=== PATIENT | female | born 1935 | race Caucasian/White ===

== ENCOUNTER 2017-07-16 15:08 | Inpatient (IN) | payer MEDICARE, OTHER ==
--- NOTE | 2017-07-16 15:25 | ED Physician Chart ---
ED Chief Complaint/HPI - Patient Information Date Seen:: 07/16/17 Time Seen:: 15:10 Chief Complaint:: hypoxia History of Present Illness:: Patient was 30 minutes into dialysis and her pulse ox dropped 89%. She followed the paramedics simple commands of squeeze my hand. Family MD/PCP:: Paramedics Review:: Nurse's Note Reviewed, Transfer documents Reviewed, Patient unable to respond ED Review of Systems - Review of Systems General/Constitutional: No fever, No chills Skin: No skin lesions Head: No headache Eyes: No loss of vision ENT: No earache Neck: No neck pain Cardio Vascular: No chest pain Pulmonary: Other (hypoxia) GI: No nausea, No vomiting, No diarrhea G/U: No dysuria Musculoskeletal: No bone or joint pain Endocrine: No polyuria Psychiatric: Prior psych history Hematopoietic: No bruising Allergic/Immuno: No urticaria Neurological: No syncope ED Past Medical History - Past Medical History Past Medical History: HTN, CHF, CVA/TIA, Dyslipidemia, PUD/GERD, Thyroid disorder, Other (respiratory failure; status post bacteremia; failure on dialysis; anxiety; depression ; hypothyroidism) Family History: Other (unavailable) Social History: Care Facility Surgical History: PEG/GTube, other (trach; dialysis shunt) Psychiatricy History: Depression Medication: Reviewed Family Medical History - Family Member Mother History Unknown: Yes Ethnicity: Non- Living Status: ED Physical Exam - Physical Examination General/Constitutional: No distress Other Gen/Cons comments:: Chronically ill-appearing Head: Atraumatic Eyes: Lids, conjuctiva normal, PERRL Skin: Nl inspection, No rash, No skin lesions, No ecchymosis ENMT: External ears, nose nl, TM canals nl Neck: No bruit Respiratory: Nl effort/Exclusion, Clear to Auscultation Cardio Vascular: RRR GI: No tenderness/rebounding/guarding, No hernia Extremities: No tenderness or effusion Other Neuro/Psych comments:: Left-sided paralysis Misc: Normal back ED Labs/Radiology/EKG Results - Lab Results Results: Laboratory Results - last 24 hr 07/16/17 07/16/17 07/16/17 15:54 15:54 15:54 WBC 20.3 H* RBC 2.71 L Hgb 8.1 L Hct 24.8 L MCV 91.5 MCH 29.8 MCHC Differential 32.6 RDW 17.5 Plt Count 237 MPV 7.5 Band Neutrophils % 7 Neutrophils (Manual) 86 H Lymphocytes 2 L Monocytes 5 Eosinophils 0 Basophils 0 Hypochromia 1+ Platelet Estimate ADEQUATE Platelet Morphology NORMAL RBC Morph Micro Appear ABNORMAL Sodium 132 L Potassium 3.2 L Chloride 97 L Carbon Dioxide 26.2 Anion Gap 12.0 BUN 70 H Creatinine 2.7 H Est GFR ( Amer) TNP Est GFR (Non-Af Amer) TNP BUN/Creatinine Ratio 25.9 Glucose 146 H Whole Bld Lactic Acid 0.90 Calcium 8.8 Laboratory Results - last 24 hr 07/16/17 07/16/17 07/16/17 15:54 15:54 15:54 WBC 20.3 H* RBC 2.71 L Hgb 8.1 L Hct 24.8 L MCV 91.5 MCH 29.8 MCHC Differential 32.6 RDW 17.5 Plt Count 237 MPV 7.5 Band Neutrophils % 7 Neutrophils (Manual) 86 H Lymphocytes 2 L Monocytes 5 Eosinophils 0 Basophils 0 Hypochromia 1+ Platelet Estimate ADEQUATE Platelet Morphology NORMAL RBC Morph Micro Appear ABNORMAL Sodium 132 L Potassium 3.2 L Chloride 97 L Carbon Dioxide 26.2 Anion Gap 12.0 BUN 70 H Creatinine 2.7 H Est GFR ( Amer) TNP Est GFR (Non-Af Amer) TNP BUN/Creatinine Ratio 25.9 Glucose 146 H Whole Bld Lactic Acid 0.90 Calcium 8.8 - Radiology Results Results: Chest x-ray: Possible retrocardiac infiltrate as left hemidiaphragm is not visualized - EKG Interpretations Rate & Rhythm: normal sinus rhythm with a rate of 84; T wave changes [place]: normal ED Septic Shock - . Is Septic Shock (SBP<90, OR Lactate>4 mmol\L) present?: No ED Reassessment (Disposition) - Reassessment Reassessment Condition:: Unchanged - Diagnosis Diagnosis:: Leukocytosis; hypokalemia; anemia; aspiration pneumonia - Patient Disposition Admitted to:: ICU Spoke to:: Brian Zhong Admitting Medical Physician:: Brian Zhong Condition at Disposition:: Stable
[2017-07-16 16:14] LABS: HEMATOCRIT 24.8 % (41.0-60); HEMOGLOBIN 8.1 gm/dL (12-16); MEAN CELL VOLUME 91.5 fl (81-100); MEAN CORPUSCULAR HEMOGLOBIN 29.8 pg (27.0-31.0); MEAN CORPUSCULAR HGB CONC 32.6 pg (28.0-36.0); MEAN PLATELET VOLUME 7.5 fl; NEUTROPHILE ABSOLUTE 18.3 Th/cmm (1.8-8.0); PLATELET COUNT 237 Th/cmm (150-400); RED BLOOD COUNT 2.71 Mil/cmm (3.80-5.20); RED CELL DISTRIBUTION WIDTH 17.5 % (11.5-20.0)
[2017-07-16 16:20] LABS: BUN - UREA NITROGEN 70 mg/dL (7-25); BUN/CREATININE RATIO 25.9; CALCIUM SERUM 8.8 mg/dL (8.6-10.3); CARBON DIOXIDE 26.2 mEq/L (21.0-31.0); CHLORIDE 97 mEq/L (98-107); CREATININE - SERUM 2.7 mg/dL (0.6-1.2); GLUCOSE 146 mg/dL (70-105); POTASSIUM SERUM 3.2 mEq/L (3.5-5.1); SODIUM SERUM 132 mEq/L (136-145)
[2017-07-16 16:25] LABS: WHITE BLOOD COUNT 20.3 Th/cmm (4.8-10.8)
[2017-07-16] MEDS ORDERED: Piperacillin Sodium/Tazobact 3.375 gm Vial IV ONE (16:37)
[2017-07-16 16:54] LABS: BAND NEUTROPHILE 7 % (0-10); NEUTROPHILS 86 % (40-80); TOTAL CELLS COUNTED 100
[2017-07-16 16:55] LABS: BASOPHIL 0 % (0-3); EOSINOPHIL 0 % (0-5); HYPOCHROMIA 1+; PLATELET ESTIMATE ADEQUATE (NORMAL); PLATELET MORPHOLOGY NORMAL (NORMAL)
[2017-07-16] MEDS ORDERED: Albuterol Nebulizer 2.5mg/3mL HHN SCH (23:00)
[2017-07-16] MEDS ORDERED: Ipratropium Neb 0.5 mg/2.5 mL UD HHN SCH (23:00)
[2017-07-16] MEDS ORDERED: DARBEPOETIN ALFA IJ SCH (23:45)
[2017-07-16] MEDS ORDERED: [UNRECOGNIZED DRUG - OTHER] IJ SCH (23:45)
[2017-07-16] MEDS ORDERED: Lactulose 10 Gm/15 mL 30mL UDC GT PRN (23:46)
[2017-07-17] MEDS: Albuterol/Ipratropium Neb 3 ML AERS HHN PRN (02:50)
--- NOTE | 2017-07-17 02:54 | History & Physical ---
ADMIT DATE: 07/16/2017 CHIEF COMPLAINT: Sepsis. HISTORY OF PRESENT ILLNESS: The patient is an 82-year-old female with a long history of hypertension, end-stage renal failure, chronic respiratory failure, was in the dialysis center, became very obtunded, altered, hypotensive, and was transferred to the Emergency Room at [facility]. On arrival, was evaluated by the ER physician. Initial workup was significant for possible sepsis, admitted to the ICU, started on IV antibiotic. Resume her medication and diet. Infectious disease consultation was obtained and also receiver [employer] and [employer] or [employer]. The patient will resume her medication and diet. The patient is not coherent. PAST MEDICAL HISTORY: Significant for hypertension, encephalopathy, chronic respiratory failure, hyperlipidemia. PAST SURGICAL HISTORY: Tracheostomy, G-tube placement and AV shunt placement. ALLERGIES: ATENOLOL, CARVEDILOL, CYCLOSPORINE, METOPROLOL, AND PHYSOSTIGMINE. SOCIAL HISTORY: No smoking, alcohol or drug use. FAMILY HISTORY: Noncontributory. REVIEW OF SYSTEMS: RENAL SYSTEM: No history of chronic renal disorder. CARDIOVASCULAR SYSTEM: She has history of coronary artery disease and hypertension. ENDOCRINE SYSTEM: No diabetes or thyroid problem. GASTROINTESTINAL SYSTEM: No upper or lower gastrointestinal bleed. NEUROLOGICAL: She has history of encephalopathy. MUSCULOSKELETAL SYSTEM: No muscular dystrophy. HEMATOLOGIC SYSTEM: No bleeding tendency. RESPIRATORY SYSTEM: She has chronic respiratory failure. GENITOURINARY SYSTEM: She has had end-stage renal failure, on hemodialysis. PHYSICAL EXAMINATION: GENERAL: She is comfortable, not in distress. VITAL SIGNS: Her temperature is 98, heart rate is 74, blood pressure 121/47. HEENT: Normocephalic. Pupils are reacting to light and accommodation. Sclerae are clear. NECK: Supple. Negative for lymphadenopathy, JVD or bruit. CHEST: ____ bilateral mild diminished. No wheezing. HEART: S1, S2 normal. No murmur or gallop. ABDOMEN: Soft. Bowel sounds are positive. EXTREMITIES: No edema. NEUROLOGIC: Not coherent. LABORATORY DATA: White blood cell is 20.3, hemoglobin 8.1, hematocrit 24.8, platelet is 237. Sodium is 132, potassium 3.2, BUN 70, and creatinine 2.7. ASSESSMENT: 1. Possible sepsis. 2. Chronic respiratory failure. 3. Hypertension. 4. Coronary artery disease. 5. Chronic anemia. PLAN: The patient was admitted to the hospital under Dr. Zhong's service, started on IV antibiotic. The patient will resume her G-tube feeding, medication and Nephrology consultation, Infectious Disease consultation, and Pulmonary consultation. Order CBC and CMP for tomorrow. JOB# [id number]
[2017-07-17 04:38] LABS: HEMATOCRIT 23.8 % (41.0-60); MEAN CELL VOLUME 91.4 fl (81-100); MEAN CORPUSCULAR HEMOGLOBIN 29.5 pg (27.0-31.0); MEAN CORPUSCULAR HGB CONC 32.2 pg (28.0-36.0); MEAN PLATELET VOLUME 7.4 fl; NEUTROPHILE ABSOLUTE 16.5 Th/cmm (1.8-8.0); PLATELET COUNT 238 Th/cmm (150-400); RED CELL DISTRIBUTION WIDTH 18.4 % (11.5-20.0)
[2017-07-17 04:46] LABS: ALB/GLOB RATIO 0.7 (1.0-1.8); ALKALINE PHOSPHATASE 494 U/L (34-104); ANION GAP 13.7 (7.0-16.0); BILIRUBIN,TOTAL 0.3 mg/dL (0.3-1.0); CALCIUM SERUM 8.6 mg/dL (8.6-10.3); CHLORIDE 96 mEq/L (98-107); CREATININE - SERUM 3.3 mg/dL (0.6-1.2); GLUCOSE 146 mg/dL (70-105); POTASSIUM SERUM 3.7 mEq/L (3.5-5.1); SGOT 53 U/L (13-39); SGPT/ALT 66 U/L (7-52); SODIUM SERUM 133 mEq/L (136-145)
[2017-07-17 05:06] LABS: HEMOGLOBIN 7.7 gm/dL (12-16); WHITE BLOOD COUNT 18.1 Th/cmm (4.8-10.8)
[2017-07-17 05:07] LABS: BUN - UREA NITROGEN 83 mg/dL (7-25); BUN/CREATININE RATIO 25.2
[2017-07-17 05:09] LABS: NEUTROPHILS 93 % (40-80); PLATELET ESTIMATE ADEQUATE (NORMAL)
[2017-07-17 05:10] LABS: ANISOCYTOSIS 1+; PLATELET MORPHOLOGY NORMAL (NORMAL)
--- NOTE | 2017-07-17 07:08 | Diagnostic Imaging Report ---
Exam: Portable examination of chest. HISTORY: Hypoxia. Portable examination of the chest at 1526 hours reviewed. The study demonstrates cardiomegaly. The aorta is calcified. Tracheostomy tube and right subclavian catheter in satisfactory position. There is evidence for right-sided atelectasis versus infiltrate with superimposed small effusion. The left lung parenchyma is well aerated. Mild congestion is present. Bony thorax remarkable for degenerative osteopenia and osteoarthritic changes of shoulder joints bilaterally. IMPRESSION: 1. Mild congestion 2. Question of right basilar infiltrate small effusion, follow-up examination recommended.
[2017-07-17] MEDS: Albuterol/Ipratropium Neb 3 ML AERS HHN SCH ×3 (07:32→19:13)
[2017-07-17] MEDS: Ferrous Sulfate 300 MG/5 ML UDC GT SCH ×2 (08:50→20:16)
[2017-07-17] MEDS: Lactobacillus Rhamnosus 10 Billion CFU Capsule GT SCH (08:50)
[2017-07-17] MEDS: Pantoprazole 40 mg/Packet GT SCH ×2 (08:52→22:15)
[2017-07-17] MEDS: Nitroglycerin 0.2 mg/hr Tdm TD SCH (09:00)
[2017-07-17] MEDS ORDERED: Aspirin 81mg Chewable Tab GT SCH (09:00)
[2017-07-17] MEDS ORDERED: Meropenem 500 MG in Sodium Chloride 0.9% 100 ML IV SCH (12:00)
[2017-07-17] MEDS ORDERED: Meropenem 500 MG in Sodium Chloride 0.9% 50 ML IV ONE (12:00)
[2017-07-17] MEDS: Levofloxacin 250mg/50mL 250 MG in Premix Fluid 1 BAG IV SCH (12:13)
[2017-07-17] MEDS ORDERED: VTE Chemical Prophylaxis Screen/Admission MC PRN (14:06)
[2017-07-17] MEDS ORDERED: Heparin Sodium 1,000 Units/mL Vial IVP ONE (15:40)
[2017-07-17] MEDS: Atorvastatin Calcium 10 MG TAB GT SCH (20:16)
[2017-07-17] MEDS: Meropenem 500 MG in Sodium Chloride 0.9% 50 ML IV SCH (20:16)
--- NOTE | 2017-07-17 20:59 | Internal Medicine Prog Note ---
Internal Medicine Subjective - Subjective Service Date: 07/17/17 Patient seen and examined:: with staff (SHE IS COMFORTABLE.) Patient is:: non-verbal, non-interactive, in bed Per staff patient has:: no adverse event Internal Medicine Objective - Results Result Diagrams: 07/17/17 04:15 07/17/17 04:15 Recent Labs: Laboratory Last Values WBC 18.1 Th/cmm (4.8-10.8) H 07/17/17 04:15 RBC 2.60 Mil/cmm (3.80-5.20) L 07/17/17 04:15 Hgb 7.7 gm/dL (12-16) L* 07/17/17 04:15 Hct 23.8 % (41.0-60) L 07/17/17 04:15 MCV 91.4 fl (81-100) 07/17/17 04:15 MCH 29.5 pg (27.0-31.0) 07/17/17 04:15 MCHC Differential 32.2 pg (28.0-36.0) 07/17/17 04:15 RDW 18.4 % (11.5-20.0) 07/17/17 04:15 Plt Count 238 Th/cmm (150-400) 07/17/17 04:15 MPV 7.4 fl 07/17/17 04:15 Band Neutrophils % 7 % (0-10) 07/16/17 15:54 Neutrophils (Manual) 93 % (40-80) H 07/17/17 04:15 Lymphocytes 4 % (20-50) L 07/17/17 04:15 Monocytes 3 % (2-10) 07/17/17 04:15 Eosinophils 0 % (0-5) 07/16/17 15:54 Basophils 0 % (0-3) 07/16/17 15:54 Hypochromia 1+ 07/16/17 15:54 Platelet Estimate ADEQUATE (NORMAL) 07/17/17 04:15 Platelet Morphology NORMAL (NORMAL) 07/17/17 04:15 Anisocytosis 1+ 07/17/17 04:15 RBC Morph Micro Appear ABNORMAL (NORMAL) 07/17/17 04:15 Sodium 133 mEq/L (136-145) L 07/17/17 04:15 Potassium 3.7 mEq/L (3.5-5.1) 07/17/17 04:15 Chloride 96 mEq/L (98-107) L 07/17/17 04:15 Carbon Dioxide 27.0 mEq/L (21.0-31.0) 07/17/17 04:15 Anion Gap 13.7 (7.0-16.0) 07/17/17 04:15 BUN 83 mg/dL (7-25) H* 07/17/17 04:15 Creatinine 3.3 mg/dL (0.6-1.2) H 07/17/17 04:15 Est GFR ( Amer) TNP 07/17/17 04:15 Est GFR (Non-Af Amer) TNP 07/17/17 04:15 BUN/Creatinine Ratio 25.2 07/17/17 04:15 Glucose 146 mg/dL (70-105) H 07/17/17 04:15 Whole Bld Lactic Acid 0.90 mmol/L (0.60-1.99) 07/16/17 15:54 Calcium 8.6 mg/dL (8.6-10.3) 07/17/17 04:15 Total Bilirubin 0.3 mg/dL (0.3-1.0) 07/17/17 04:15 AST 53 U/L (13-39) H 07/17/17 04:15 ALT 66 U/L (7-52) H 07/17/17 04:15 Alkaline Phosphatase 494 U/L (34-104) H 07/17/17 04:15 Total Protein 6.2 gm/dL (6.0-8.3) 07/17/17 04:15 Albumin 2.5 gm/dL (3.7-5.3) L 07/17/17 04:15 Globulin 3.7 gm/dL 07/17/17 04:15 Albumin/Globulin Ratio 0.7 (1.0-1.8) L 07/17/17 04:15 Random Vancomycin 19.8 ug/mL (5.0-40.0) 07/17/17 08:50 Blood Type O NEGATIVE 07/17/17 09:05 Antibody Screen NEGATIVE 07/17/17 09:05 Crossmatch See Detail 07/17/17 09:05 - Physical Exam Vitals and I&O: Vital Signs Temp 97.3 F 07/17/17 15:00 Pulse 83 07/17/17 19:14 Resp 18 07/17/17 19:14 BP 158/29 07/17/17 19:00 Pulse Ox 97 07/17/17 19:14 Intake & Output 07/17/17 07/17/17 07/18/17 06:59 18:59 06:59 Intake Total 500 50 200 Output Total 2 Balance 500 50 198 Weight (lbs) 52.163 kg Intake: Intake, IV Amount 500 50 Levofloxacin 250mg/50mL 50 250 mg In Premix Fluid 1 bag @ 50 mls/hr IV Q24HR@ 0900 [facility] Rx#:[id number] Vancomycin HCl 1 gm In 250 Sodium Chloride 0.9% 250 ml @ 166.667 mls/hr IV X1 ONE Rx#:[id number] Other 200 Output: Stool 2 Active Medications: Current Medications Albuterol/Ipratropium (Duoneb Neb) 3 ml HHN Q2HR PRN PRN Reason: SOB/WHEEZING Stop: 09/14/17 23:45 Last Admin: 07/17/17 02:50 Dose: 3 ml Albuterol/Ipratropium (Duoneb Neb) 3 ml HHN [id number] [facility] Stop: 09/16/17 06:59 Amlodipine Besylate (Norvasc) 10 mg GT QPM [facility] Stop: 09/15/17 16:59 Last Admin: 07/17/17 17:00 Dose: Not Given Aspirin (Aspirin Chewable) 81 mg GT DAILY [facility] Stop: 09/15/17 08:59 Last Admin: 07/17/17 08:50 Dose: 81 mg Atorvastatin Calcium (Lipitor) 20 mg GT HS [facility] Stop: 09/15/17 20:59 Last Admin: 07/17/17 20:16 Dose: 20 mg Budesonide (Pulmicort) 0.5 mg HHN BIDRT [facility] Stop: 09/16/17 06:59 Diphenhydramine HCl (Benadryl) 25 mg GT Q4H PRN PRN Reason: Itching Stop: 09/14/17 23:45 Escitalopram Oxalate (Lexapro) 10 mg GT DAILY [facility] PRN Reason: Protocol Stop: 09/15/17 08:59 Ferrous Sulfate (Iron) 300 mg GT Q12H [facility] Stop: 09/15/17 07:29 Last Admin: 07/17/17 20:16 Dose: 300 mg Heparin Sodium (Porcine) (Heparin) 2,000 units HD UD [facility] Stop: 07/19/17 00:00 Heparin Sodium (Porcine) (Heparin) 5,000 units HD UD [facility] Stop: 07/18/17 09:01 Hydralazine HCl (Apresoline) 20 mg GT Q6H PRN PRN Reason: SBP ABOVE 150 Stop: 09/14/17 23:45 Levofloxacin 250 mg/ (Miscellaneous) 50 mls @ 50 mls/hr IV Q24HR@0900 [facility] Stop: 09/15/17 11:59 Last Infusion: 07/17/17 13:15 Dose: Infused Meropenem 500 mg/ Sodium (Chloride) 50 mls @ 100 mls/hr IV Q12HR [facility] Stop: 09/15/17 11:59 Last Admin: 07/17/17 20:16 Dose: 100 mls/hr Albumin Human (Albuminar 25%) 25 gm in 100 mls @ 50 mls/hr IV PRN PRN PRN Reason: BP Support During HD Lactobacillus Rhamnosus (Culturelle) 1 each GT DAILY [facility] Stop: 09/15/17 08:59 Last Admin: 07/17/17 08:50 Dose: 1 each Lactulose (Cephulac) 20 gm GT Q6H PRN PRN Reason: Constipation Stop: 09/14/17 23:45 Lisinopril (Zestril) 40 mg PO DAILY [facility] Stop: 09/15/17 08:59 Last Admin: 07/17/17 09:00 Dose: Not Given Lorazepam (Ativan) 1 mg IVP Q2HR PRN; Protocol PRN Reason: Agitation Stop: 09/14/17 22:59 Last Admin: 07/17/17 12:23 Dose: 1 mg Metoclopramide HCl (Reglan) 5 mg GT Q6H PRN PRN Reason: Nausea / Vomiting Stop: 09/15/17 00:29 Miscellaneous (Vancomycin Iv Per Pharmacy) 1 ea PRN PRN PRN Reason: PROTOCOL Stop: 09/14/17 21:42 Miscellaneous (Darbepoetin Jose In Polysorbat [Aranesp]) 0.1 mg IJ QWEEK 0730 [facility] Stop: 09/14/17 23:44 Miscellaneous (Vte Chemical Prophylaxis Screen/ Admission) 1 heidy PRN PRN PRN Reason: PROTOCOL Stop: 09/15/17 14:05 Miscellaneous (Clinical Monitoring) 1 ea MC DAILY PRN PRN Reason: RENAL Stop: 09/15/17 17:32 Nitroglycerin (Nitrostat) 0.4 mg SL Q5MIN PRN PRN Reason: Chest Pain Stop: 09/14/17 23:45 Nitroglycerin (Transderm-Nitro) 1 patch TD DAILY [facility] Stop: 09/15/17 08:59 Last Admin: 07/17/17 09:00 Dose: Not Given Pantoprazole Sodium (Protonix) 40 mg GT Q12HR [facility] Stop: 09/15/17 00:14 Last Admin: 07/17/17 08:52 Dose: 40 mg General: demented HEENT: NC/AT, PERRLA, EOMI, anicteric sclerae, throat clear Neck: Supple, No JVD, No thyromegaly, +2 carotid pulse wo bruit, No LAD Lungs: CTAB Cardiovascular: RRR, Normal S1, Normal S2, without murmur Abdomen: soft, non-tender, non-distended Extremities: clear Neurological: bedbound Internal Medicine Assmt/Plan - Assessment Assessment: 1.SEPSIS. 2.ANEMIA. 3.RESPIRATORY FAILURE. 4.ESRF. - Plan Plan: CONTINUE ON CURRENT MEDICATION AND DIET.CBC AND CMP IN AM. Nutritional Asmnt/Malnutr-PDOC - Dietary Evaluation Malnutrition Findings (Please click <Entered> for more info): Nutritional Asmnt/Malnutrition Start: 07/17/17 12: 34 Text: Status: Complete Freq: Document 07/17/17 12:34 ALONA (Rec: 07/17/17 13:13 ALONA [email or web address]) Nutritional Asmnt/Malnutrition Patient General Information Nutritional Screening High Risk Diagnosis asp pneumonia, animia, hypokalemia, leukocytosis Pertinent Medical Hx/Surgical Hx HTN, CHF, CVA/TIA, dyslipidemia, PUD/GERD, thyroid disorder, anxiety, depression, PEG, ESRD on dialysis Subjective Information pt seen sleeping in bed during the time of visit. TF Novasourse was not running at this time. Spoke with KG Quintero , TF was turn off d/t pt changing, was going to restart now at same rate of 50ml/hr continously. Per RN, pt is tolerated TF well, no residual noted. Current Diet Order/ Nutrition Support Novasource renal 50ml/hr continously, providing 2400kcal, 109g Pertinent Medications Iron, Culturelle, Vancomycin Pertinent Labs 07/17 Na 133L, K 3.7, Cl 96L, BUN 83H, Cr 3.3H, Glu 146H, AST 53H, ALT 66H, Alkaline Phos 494H, Alb 2.5 Nutritional Hx/Data Height 1.47 m Height (Calculated Centimeters) 147.3 Current Weight (lbs) 52.163 kg Weight (Calculated Kilograms) 52.2 Weight (Calculated Grams) 74928.1 [place] Body Weight 90 % [place] Body Weight 124 Body Mass Index (BMI) 24.0 Weight Status Approriate GI Symptoms Usual diet at home Novasource Renal 50ml/hr x 16hr daily with water flush 150ml q6hr, providing 1600kcal , 73g protein Skin Integrity/Comment: intact Estimated Nutritional Goals BEE in Kcals: Using Current wt Calories/Kcals/Kg 30-35 Kcals Calculated 3145-6350 Protein: Using Current wt Protein g/k.2-1.4 monitor renal labs Protein Calculated 63-73 Fluid: ml 6178-6990 Nutritional Problem 1. Problem Problem excessive intake from enteral nutrition Etiology r/t Novasource Renal running at 50m/hr continously Signs/Symptoms: current TF providing 2400kcal and 104g protein which meets 150% of nutritional needs Malnutrition Alert Protein-Calorie Malnutrition N/A Is there a minimum of two criteria No selected? Query Text:Check all the applicable criteria. A minimum of two criteria are recommended for diagnosis of either severe or non-severe malnutrition. Intervention/Recommendation Recommendations by RD Decrease Calorie Intake Comments 1. Notified RN Ingrid that current TF regimen provides excessive nutrition than actual needs. RN will change TF to 35ml/hr x 16hr daily. This provides 800ml total volume, 1600kcal, 73g protein, meeting 100% of nutritional needs. 2. monitor TF rate, tolerance, residual, wt daily, nutrition related labs 3. F/U as high risk in 07/19- 07/20 Expected Outcomes/Goals Expected Outcomes/Goals 1. pt to meet 100% of nutritional needs via nutrition support with tolerance 2. labs to improve, wt to remain stable
[2017-07-18] MEDS ORDERED: Albumin 25% 25gm/100mL 25 GM/100 ML BTL IV PRN
[2017-07-18] MEDS: Heparin Sodium 1,000 Units/mL Vial HD SCH ×2 (00:34→08:11)
[2017-07-18 05:07] LABS: HEMOGLOBIN 8.8 gm/dL (12-16); MEAN CELL VOLUME 88.9 fl (81-100); MEAN CORPUSCULAR HEMOGLOBIN 29.8 pg (27.0-31.0); MEAN CORPUSCULAR HGB CONC 33.6 pg (28.0-36.0); MEAN PLATELET VOLUME 6.6 fl; PLATELET COUNT 239 Th/cmm (150-400); RED BLOOD COUNT 2.94 Mil/cmm (3.80-5.20); RED CELL DISTRIBUTION WIDTH 17.8 % (11.5-20.0)
[2017-07-18 05:19] LABS: ALB/GLOB RATIO 0.7 (1.0-1.8); ALKALINE PHOSPHATASE 439 U/L (34-104); BILIRUBIN,DIRECT 0.16 mg/dL (0.0-0.2); BILIRUBIN,TOTAL 0.4 mg/dL (0.3-1.0); BUN - UREA NITROGEN 53 mg/dL (7-25); BUN/CREATININE RATIO 22.1; CALCIUM SERUM 8.3 mg/dL (8.6-10.3); CHLORIDE 95 mEq/L (98-107); CREATININE - SERUM 2.4 mg/dL (0.6-1.2); GLUCOSE 133 mg/dL (70-105); SGOT 40 U/L (13-39); SGPT/ALT 51 U/L (7-52); SODIUM SERUM 132 mEq/L (136-145)
[2017-07-18 05:40] LABS: ANION GAP 10.9 (7.0-16.0); POTASSIUM SERUM 2.9 mEq/L (3.5-5.1); WHITE BLOOD COUNT 17.2 Th/cmm (4.8-10.8)
[2017-07-18 05:41] LABS: HEMATOCRIT 26.2 % (41.0-60)
[2017-07-18 05:50] LABS: BAND NEUTROPHILE 4 % (0-10); NEUTROPHILS 91 % (40-80); TOTAL CELLS COUNTED 100
[2017-07-18 05:56] LABS: TSH 15.41 uIU/ml (0.34-5.60)
[2017-07-18] MEDS ORDERED: KCL 20mEq/100mL Premix 20 MEQ/100 ML PIGGYBACK IV ONE ×2 (06:22→14:54)
[2017-07-18] MEDS: Ferrous Sulfate 300 MG/5 ML UDC GT SCH (06:36)
--- NOTE | 2017-07-18 07:22 | Consultation ---
DATE OF CONSULTATION: 07/17/2017 REASON FOR CONSULTATION: For electrolyte imbalance and fluid management. HISTORY OF PRESENT ILLNESS: This is an 82-year-old female with past medical history of end-stage renal disease, on hemodialysis, who was brought in because of altered level of consciousness. A few hours prior to admission, the patient had her dialysis treatment as scheduled. She suddenly became obtunded, associated with hypotension and hypoxemia. She was brought to the Emergency Room. Her white count was 20.3. Chest x-ray revealed questionable right infiltrate, small effusion. She remained afebrile. She was admitted here for further evaluation and management. She had no history of fever/chills, nausea and vomiting, cough, diarrhea, congestion, or headaches. PAST MEDICAL HISTORY: 1. End-stage renal disease, on hemodialysis. 2. Respiratory failure with T-piece. 3. Dyslipidemia. 4. Anemia of chronic disease. 5. Depression/anxiety. 6. GERD. 7. Hypothyroidism. PAST SURGICAL HISTORY: 1. Status post tracheostomy. 2. Status post PEG placement. CURRENT MEDICATIONS: She is currently on albuterol/ipratropium, amlodipine, aspirin, atorvastatin, darbepoetin, diphenhydramine, escitalopram, ferrous sulphate, hydralazine, ipratropium, lactulose, levofloxacin, lisinopril, lorazepam, meropenem, metoclopramide, nitroglycerin, pantoprazole, vancomycin, and Zosyn. ALLERGIES: Allergic to atenolol, carvedilol, cyclosporine, metoprolol, and physostigmine. SOCIAL AND FAMILY HISTORY: I was unable to obtain directly from the patient because she remains stuporous. REVIEW OF SYSTEMS: Again, I was not able to decipher from the patient. PHYSICAL EXAMINATION: GENERAL: The patient barely responsive, on a T-piece. VITAL SIGNS: Blood pressure is 122/57, pulse is 97, and temperature 98.7 degrees. SKIN: Good turgor, warm, no rash, no jaundice appreciated. HEENT: Head normocephalic, atraumatic. Eyes: Extraocular muscles intact. Pupils equal, round, reactive to light and accommodate. Anicteric sclerae. Pale conjunctivae. Nose, midline nasal septum. Mouth: Dry mucosa with poor dentition. NECK: Supple. No adenopathy, no thyromegaly, no bruits. Trachea palpated in the midline. CHEST AND CARDIOVASCULAR: S1, S2. No rub, murmur, nor gallop appreciated. Point of maximal impulse fifth intercostal space, left midclavicular line. No abdominal or femoral bruits appreciated. LUNGS: Equal expansion. No use of accessory muscles. No supraclavicular retractions. Decreased breath sounds, few rhonchi, but no rales nor wheezes appreciated. BREAST: Symmetrical, without any discharge. ABDOMEN: Scaphoid, soft. Positive for bowel sounds. No bruits either diastolic or systolic. RECTAL: Deferred. GENITOURINARY: Normal appearing female genitalia. MUSCULOSKELETAL: No effusions present in her joints, but unable to assess her range of motion. EXTREMITIES: No evidence of any edema, cyanosis, nor clubbing with palpable femoral, but unable to fully appreciate popliteal and dorsalis pedis pulses. NEUROLOGIC: The patient is barely responsive at the present time, so I will do my neuro exam a little bit later when she is more responsive. LABORATORY DATA: Labs did reveal a sodium of 130, potassium 3.7, chloride 96, bicarbonate 27, BUN is 83, creatinine 3.3, glucose 146, calcium 8.6, albumin is 2.5. White count 18.1, hemoglobin 7.7, hematocrit 23.8, platelets 238, and polys 93%. IMPRESSION: 1. End-stage renal disease, on hemodialysis. 2. Altered level of consciousness, possibly due to hypotension brought about by her dialysis treatment as well as ongoing septicemia. 3. Respiratory failure with elevated troponin. 4. Acute liver failure. 5. Severe malnutrition. 6. Dyslipidemia. 7. Anemia of chronic kidney disease. 8. Depression/anxiety. 9. Gastroesophageal reflux. 10. Dyslipidemia. PLAN: 1. Hemodialysis as scheduled. 2. Follow up patel culture. 3. Continued Levaquin as well as vancomycin. 4. Antipyretics. Thank you Dr. Zhong for this consult. We will follow the patient closely with you. JOB# [id number]
[2017-07-18] MEDS: Budesonide 0.5 Mg/2 mL Ud HHN SCH ×2 (07:44→19:02)
[2017-07-18] MEDS: Albuterol/Ipratropium Neb 3 ML AERS HHN SCH ×4 (07:44→19:02)
[2017-07-18] MEDS: Nitroglycerin 0.2 mg/hr Tdm TD SCH ×2 (08:11→08:37)
[2017-07-18] MEDS: Potassium Chloride Elixir 20 mEq /15 mL UDC GT SCH (08:29)
[2017-07-18] MEDS: Lactobacillus Rhamnosus 10 Billion CFU Capsule GT SCH (08:29)
[2017-07-18] MEDS: Pantoprazole 40 mg/Packet GT SCH ×2 (08:29→20:51)
[2017-07-18] MEDS: Meropenem 500 MG in Sodium Chloride 0.9% 50 ML IV SCH ×2 (08:34→20:51)
[2017-07-18 09:03] LABS: pH 7.38 (7.35-7.45)
[2017-07-18 09:04] LABS: ABG SOURCE Arterial; ALLEN TEST YES; HCO3 28.8 mEq/L (20.0-26.0)
[2017-07-18 09:05] LABS: CRITICAL VALUES REPORTED BY SH; FIO2 60
--- NOTE | 2017-07-18 09:40 | Diagnostic Imaging Report ---
Portable chest x-ray HISTORY: Shortness of breath Compared with the prior exam of July 16, 2017, there is persistent marked cardiomegaly. Persistent density noted in the left lower hemithorax that may be associated with pleural fluid. Underlying consolidation and/or atelectasis cannot be excluded. Persistent small right pleural effusion. Haziness noted in the right lung. Pulmonary vascular redistribution is seen consistent with an element of cardiac decompensation. IMPRESSION 1. Persistent cardiomegaly with evidence of probable small bilateral pleural effusions and changes suggesting a degree of congestive heart failure. Underlying pneumonia cannot be excluded. Clinical correlation is needed.
[2017-07-18] MEDS: Levofloxacin 250mg/50mL 250 MG in Premix Fluid 1 BAG IV SCH (09:41)
--- NOTE | 2017-07-18 14:22 | General Progress Note ---
Subjective - Review of Systems Service Date: 07/18/17 Subjective: more awake, mild tachypnea, right arm & back pain Objective - Results Result Diagrams: 07/18/17 04:45 07/18/17 04:45 Recent Labs: Laboratory Last Values WBC 17.2 Th/cmm (4.8-10.8) H 07/18/17 04:45 RBC 2.94 Mil/cmm (3.80-5.20) L 07/18/17 04:45 Hgb 8.8 gm/dL (12-16) L 07/18/17 04:45 Hct 26.2 % (41.0-60) L D 07/18/17 04:45 MCV 88.9 fl (81-100) 07/18/17 04:45 MCH 29.8 pg (27.0-31.0) 07/18/17 04:45 MCHC Differential 33.6 pg (28.0-36.0) 07/18/17 04:45 RDW 17.8 % (11.5-20.0) 07/18/17 04:45 Plt Count 239 Th/cmm (150-400) 07/18/17 04:45 MPV 6.6 fl 07/18/17 04:45 Band Neutrophils % 4 % (0-10) 07/18/17 04:45 Neutrophils (Manual) 91 % (40-80) H 07/18/17 04:45 Lymphocytes 14 % (20-50) L 07/18/17 04:45 Monocytes 1 % (2-10) L 07/18/17 04:45 Eosinophils 0 % (0-5) 07/16/17 15:54 Basophils 0 % (0-3) 07/16/17 15:54 Hypochromia 1+ 07/16/17 15:54 Platelet Estimate ADEQUATE (NORMAL) 07/17/17 04:15 Platelet Morphology NORMAL (NORMAL) 07/17/17 04:15 Anisocytosis 1+ 07/17/17 04:15 RBC Morph Micro Appear ABNORMAL (NORMAL) 07/17/17 04:15 Specimen Source Arterial 07/18/17 09:00 Sample Site Right Radial 07/18/17 09:00 pH 7.38 (7.35-7.45) 07/18/17 09:00 pCO2 53.0 mmHg (35.0-45.0) H 07/18/17 09:00 pO2 75.0 mmHg (80.0-100.0) L 07/18/17 09:00 HCO3 28.8 mEq/L (20.0-26.0) H 07/18/17 09:00 Base Excess 5.0 mEq/L (-3.0-3.0) H 07/18/17 09:00 O2 Saturation 95.0 % (92.0-100.0) 07/18/17 09:00 Jae Test YES 07/18/17 09:00 Vent Rate NA 07/18/17 09:00 Inspired O2 60 07/18/17 09:00 Tidal Volume NA 07/18/17 09:00 PEEP NA 07/18/17 09:00 Pressure (ins/psv/peep) NA 07/18/17 09:00 Critical Value SH 07/18/17 09:00 Sodium 132 mEq/L (136-145) L 07/18/17 04:45 Potassium 2.9 mEq/L (3.5-5.1) L* 07/18/17 04:45 Chloride 95 mEq/L (98-107) L 07/18/17 04:45 Carbon Dioxide 29.0 mEq/L (21.0-31.0) 07/18/17 04:45 Anion Gap 10.9 (7.0-16.0) 07/18/17 04:45 BUN 53 mg/dL (7-25) H 07/18/17 04:45 Creatinine 2.4 mg/dL (0.6-1.2) H 07/18/17 04:45 Est GFR ( Amer) TNP 07/18/17 04:45 Est GFR (Non-Af Amer) TNP 07/18/17 04:45 BUN/Creatinine Ratio 22.1 07/18/17 04:45 Glucose 133 mg/dL (70-105) H 07/18/17 04:45 Whole Bld Lactic Acid 0.90 mmol/L (0.60-1.99) 07/16/17 15:54 Calcium 8.3 mg/dL (8.6-10.3) L 07/18/17 04:45 Total Bilirubin 0.4 mg/dL (0.3-1.0) 07/18/17 04:45 Direct Bilirubin 0.16 mg/dL (0.0-0.2) 07/18/17 04:45 AST 40 U/L (13-39) H 07/18/17 04:45 ALT 51 U/L (7-52) 07/18/17 04:45 Alkaline Phosphatase 439 U/L (34-104) H 07/18/17 04:45 Ammonia 39 umol/L (16-53) 07/18/17 04:45 Total Protein 5.9 gm/dL (6.0-8.3) L 07/18/17 04:45 Albumin 2.4 gm/dL (3.7-5.3) L 07/18/17 04:45 Globulin 3.5 gm/dL 07/18/17 04:45 Albumin/Globulin Ratio 0.7 (1.0-1.8) L 07/18/17 04:45 TSH 15.41 uIU/ml (0.34-5.60) H 07/18/17 04:45 Stool Occult Blood POSITIVE (NEGATIVE) 07/17/17 18:00 Random Vancomycin 22.4 ug/mL (5.0-40.0) 07/18/17 04:45 Blood Type O NEGATIVE 07/17/17 09:05 Antibody Screen NEGATIVE 07/17/17 09:05 Crossmatch See Detail 07/17/17 09:05 - Physical Exam Vitals and I&O: Vital Signs Temp 99.1 F 07/18/17 12:00 Pulse 89 07/18/17 13:00 Resp 18 07/18/17 13:00 BP 155/65 07/18/17 13:00 Pulse Ox 94 07/18/17 13:00 Intake & Output 07/17/17 07/18/17 07/18/17 18:59 06:59 18:59 Intake Total 50 250 100 Output Total 2 Balance 50 248 100 Weight (lbs) 52.163 kg Intake: Intake, IV Amount 50 50 100 Levofloxacin 250mg/50mL 50 50 250 mg In Premix Fluid 1 bag @ 50 mls/hr IV Q24HR@ 0900 [facility] Rx#:[id number] Meropenem 500 mg In 50 50 Sodium Chloride 0.9% 50 ml @ 100 mls/hr IV Q12HR [facility] Rx#:[id number] Other 200 Output: Stool 2 Other: # Voids 0 # Bowel Movements 2 Stool Characteristics Soft Active Medications: Current Medications Acetaminophen (Tylenol 650mg/20.3ml Suspension) 650 mg PO Q6H PRN PRN Reason: Pain (Mild) Stop: 09/16/17 14:08 Albuterol/Ipratropium (Duoneb Neb) 3 ml HHN Q2HR PRN PRN Reason: SOB/WHEEZING Stop: 09/14/17 23:45 Last Admin: 07/17/17 02:50 Dose: 3 ml Albuterol/Ipratropium (Duoneb Neb) 3 ml HHN [id number] [facility] Stop: 09/16/17 06:59 Last Admin: 07/18/17 11:09 Dose: 3 ml Amlodipine Besylate (Norvasc) 10 mg GT QPM [facility] Stop: 09/15/17 16:59 Last Admin: 07/17/17 17:00 Dose: Not Given Atorvastatin Calcium (Lipitor) 20 mg GT HS [facility] Stop: 09/15/17 20:59 Last Admin: 07/17/17 20:16 Dose: 20 mg Budesonide (Pulmicort) 0.5 mg HHN BIDRT [facility] Stop: 09/16/17 06:59 Last Admin: 07/18/17 07:44 Dose: 0.5 mg Diphenhydramine HCl (Benadryl) 25 mg GT Q4H PRN PRN Reason: Itching Stop: 09/14/17 23:45 Escitalopram Oxalate (Lexapro) 10 mg GT DAILY [facility] PRN Reason: Protocol Stop: 09/15/17 08:59 Ferrous Sulfate (Iron) 300 mg GT Q12H [facility] Stop: 09/15/17 07:29 Last Admin: 07/18/17 06:36 Dose: 300 mg Heparin Sodium (Porcine) (Heparin) 2,000 units HD UD [facility] Stop: 07/19/17 00:00 Last Admin: 07/18/17 08:11 Dose: Not Given Hydralazine HCl (Apresoline) 20 mg GT Q6H PRN PRN Reason: SBP ABOVE 150 Stop: 09/14/17 23:45 Levofloxacin 250 mg/ (Miscellaneous) 50 mls @ 50 mls/hr IV Q24HR@0900 [facility] Stop: 09/15/17 11:59 Last Infusion: 07/18/17 10:40 Dose: Infused Meropenem 500 mg/ Sodium (Chloride) 50 mls @ 100 mls/hr IV Q12HR [facility] Stop: 09/15/17 11:59 Last Infusion: 07/18/17 09:05 Dose: Infused Albumin Human (Albuminar 25%) 25 gm in 100 mls @ 50 mls/hr IV PRN PRN PRN Reason: BP Support During HD Lactobacillus Rhamnosus (Culturelle) 1 each GT DAILY [facility] Stop: 09/15/17 08:59 Last Admin: 07/18/17 08:29 Dose: 1 each Lactulose (Cephulac) 20 gm GT Q6H PRN PRN Reason: Constipation Stop: 09/14/17 23:45 Lisinopril (Zestril) 40 mg PO DAILY [facility] Stop: 09/15/17 08:59 Last Admin: 07/18/17 08:33 Dose: 40 mg Lorazepam (Ativan) 1 mg IVP Q2HR PRN; Protocol PRN Reason: Agitation Stop: 09/14/17 22:59 Last Admin: 07/18/17 03:05 Dose: 1 mg Metoclopramide HCl (Reglan) 5 mg GT Q6H PRN PRN Reason: Nausea / Vomiting Stop: 09/15/17 00:29 Miscellaneous (Vancomycin Iv Per Pharmacy) 1 ea PRN PRN PRN Reason: PROTOCOL Stop: 09/14/17 21:42 Miscellaneous (Darbepoetin Jose In Polysorbat [Aranesp]) 0.1 mg IJ QWEEK 0730 [facility] Stop: 09/14/17 23:44 Miscellaneous (Vte Chemical Prophylaxis Screen/ Admission) 1 ea PRN PRN PRN Reason: PROTOCOL Stop: 09/15/17 14:05 Miscellaneous (Clinical Monitoring) 1 ea MC DAILY PRN PRN Reason: RENAL Stop: 09/15/17 17:32 Mupirocin (Bactroban Oint) 1 appl NS BID [facility] Stop: 07/23/17 09:01 Nitroglycerin (Nitrostat) 0.4 mg SL Q5MIN PRN PRN Reason: Chest Pain Stop: 09/14/17 23:45 Nitroglycerin (Transderm-Nitro) 1 patch TD DAILY [facility] Stop: 09/15/17 08:59 Last Admin: 07/18/17 08:37 Dose: 1 patch Pantoprazole Sodium (Protonix) 40 mg GT Q12HR [facility] Stop: 09/15/17 00:14 Last Admin: 07/18/17 08:29 Dose: 40 mg Potassium Chloride (Potassium Chloride Elixir) 20 meq GT DAILY [facility] Stop: 09/16/17 08:59 Last Admin: 07/18/17 08:29 Dose: 20 meq General: Alert, Mild distress HEENT: Atraumatic, PERRLA, EOMI, Mucous membr. moist/pink Neck: Supple, +2 carotid pulse wo bruit Cardiovascular: Regular rate, Normal S1, Normal S2 Lungs: Other (rhonchi, congestion) Abdomen: Bowel sounds, Soft Extremities: no Edema Neurological: Sensation intact Skin: no Rash Psych/Mental Status: Mood NL Assessment/Plan - Problem List Patient Problems: All Active Problems LOW SAO2 AND LETHARGY (Acute) - Assessment Assessment: ESRD on HD ALOC Resp failure Acute liver failure Severe malnutrition Dyslipidemia Anemia of CD - Plan Plan: Lab - Result Diagrams 07/18/17 04:45 07/18/17 04:45 Current Medications Acetaminophen (Tylenol 650mg/20.3ml Suspension) 650 mg PO Q6H PRN PRN Reason: Pain (Mild) Stop: 09/16/17 14:08 Albuterol/Ipratropium (Duoneb Neb) 3 ml HHN Q2HR PRN PRN Reason: SOB/WHEEZING Stop: 09/14/17 23:45 Last Admin: 07/17/17 02:50 Dose: 3 ml Albuterol/Ipratropium (Duoneb Neb) 3 ml HHN [id number] [facility] Stop: 09/16/17 06:59 Last Admin: 07/18/17 11:09 Dose: 3 ml Amlodipine Besylate (Norvasc) 10 mg GT QPM [facility] Stop: 09/15/17 16:59 Last Admin: 07/17/17 17:00 Dose: Not Given Atorvastatin Calcium (Lipitor) 20 mg GT HS [facility] Stop: 09/15/17 20:59 Last Admin: 07/17/17 20:16 Dose: 20 mg Budesonide (Pulmicort) 0.5 mg HHN BIDRT [facility] Stop: 09/16/17 06:59 Last Admin: 07/18/17 07:44 Dose: 0.5 mg Diphenhydramine HCl (Benadryl) 25 mg GT Q4H PRN PRN Reason: Itching Stop: 09/14/17 23:45 Escitalopram Oxalate (Lexapro) 10 mg GT DAILY [facility] PRN Reason: Protocol Stop: 09/15/17 08:59 Ferrous Sulfate (Iron) 300 mg GT Q12H [facility] Stop: 09/15/17 07:29 Last Admin: 07/18/17 06:36 Dose: 300 mg Heparin Sodium (Porcine) (Heparin) 2,000 units HD UD [facility] Stop: 07/19/17 00:00 Last Admin: 07/18/17 08:11 Dose: Not Given Hydralazine HCl (Apresoline) 20 mg GT Q6H PRN PRN Reason: SBP ABOVE 150 Stop: 09/14/17 23:45 Levofloxacin 250 mg/ (Miscellaneous) 50 mls @ 50 mls/hr IV Q24HR@0900 [facility] Stop: 09/15/17 11:59 Last Infusion: 07/18/17 10:40 Dose: Infused Meropenem 500 mg/ Sodium (Chloride) 50 mls @ 100 mls/hr IV Q12HR [facility] Stop: 09/15/17 11:59 Last Infusion: 07/18/17 09:05 Dose: Infused Albumin Human (Albuminar 25%) 25 gm in 100 mls @ 50 mls/hr IV PRN PRN PRN Reason: BP Support During HD Lactobacillus Rhamnosus (Culturelle) 1 each GT DAILY [facility] Stop: 09/15/17 08:59 Last Admin: 07/18/17 08:29 Dose: 1 each Lactulose (Cephulac) 20 gm GT Q6H PRN PRN Reason: Constipation Stop: 09/14/17 23:45 Lisinopril (Zestril) 40 mg PO DAILY [facility] Stop: 09/15/17 08:59 Last Admin: 07/18/17 08:33 Dose: 40 mg Lorazepam (Ativan) 1 mg IVP Q2HR PRN; Protocol PRN Reason: Agitation Stop: 09/14/17 22:59 Last Admin: 07/18/17 03:05 Dose: 1 mg Metoclopramide HCl (Reglan) 5 mg GT Q6H PRN PRN Reason: Nausea / Vomiting Stop: 09/15/17 00:29 Miscellaneous (Vancomycin Iv Per Pharmacy) 1 ea MC PRN PRN PRN Reason: PROTOCOL Stop: 09/14/17 21:42 Miscellaneous (Darbepoetin Jose In Polysorbat [Aranesp]) 0.1 mg IJ QWEEK 0730 [facility] Stop: 09/14/17 23:44 Miscellaneous (Vte Chemical Prophylaxis Screen/ Admission) 1 ea PRN PRN PRN Reason: PROTOCOL Stop: 09/15/17 14:05 Miscellaneous (Clinical Monitoring) 1 ea MC DAILY PRN PRN Reason: RENAL Stop: 09/15/17 17:32 Mupirocin (Bactroban Oint) 1 appl NS BID [facility] Stop: 07/23/17 09:01 Nitroglycerin (Nitrostat) 0.4 mg SL Q5MIN PRN PRN Reason: Chest Pain Stop: 09/14/17 23:45 Nitroglycerin (Transderm-Nitro) 1 patch TD DAILY [facility] Stop: 09/15/17 08:59 Last Admin: 07/18/17 08:37 Dose: 1 patch Pantoprazole Sodium (Protonix) 40 mg GT Q12HR [facility] Stop: 09/15/17 00:14 Last Admin: 07/18/17 08:29 Dose: 40 mg Potassium Chloride (Potassium Chloride Elixir) 20 meq GT DAILY [facility] Stop: 09/16/17 08:59 Last Admin: 07/18/17 08:29 Dose: 20 meq Lab - Result Diagrams 07/18/17 04:45 07/18/17 04:45 Pt. was dialyzed yesterday & tolerated it well CXR revealed increased infiltrates, congestion schedule for HD again in am replace K f/u electrolytes, cbc Nutritional Asmnt/Malnutr-PDOC - Dietary Evaluation Malnutrition Findings (Please click <Entered> for more info): Nutritional Asmnt/Malnutrition Start: 07/17/17 12: 34 Text: Status: Complete Freq: Document 07/17/17 12:34 MAI (Rec: 07/17/17 13:13 MAI [id number]) Nutritional Asmnt/Malnutrition Patient General Information Nutritional Screening High Risk Diagnosis asp pneumonia, animia, hypokalemia, leukocytosis Pertinent Medical Hx/Surgical Hx HTN, CHF, CVA/TIA, dyslipidemia, PUD/GERD, thyroid disorder, anxiety, depression, PEG, ESRD on dialysis Subjective Information pt seen sleeping in bed during the time of visit. TF Novasourse was not running at this time. Spoke with KG Quintero , TF was turn off d/t pt changing, was going to restart now at same rate of 50ml/hr continously. Per RN, pt is tolerated TF well, no residual noted. Current Diet Order/ Nutrition Support Novasource renal 50ml/hr continously, providing 2400kcal, 109g Pertinent Medications Iron, Culturelle, Vancomycin Pertinent Labs 07/17 Na 133L, K 3.7, Cl 96L, BUN 83H, Cr 3.3H, Glu 146H, AST 53H, ALT 66H, Alkaline Phos 494H, Alb 2.5 Nutritional Hx/Data Height 1.47 m Height (Calculated Centimeters) 147.3 Current Weight (lbs) 52.163 kg Weight (Calculated Kilograms) 52.2 Weight (Calculated Grams) 74482.1 Harvey Body Weight 90 % Harvey Body Weight 124 Body Mass Index (BMI) 24.0 Weight Status Approriate GI Symptoms Usual diet at home Novasource Renal 50ml/hr x 16hr daily with water flush 150ml q6hr, providing 1600kcal , 73g protein Skin Integrity/Comment: intact Estimated Nutritional Goals BEE in Kcals: Using Current wt Calories/Kcals/Kg 30-35 Kcals Calculated 9811-4804 Protein: Using Current wt Protein g/k.2-1.4 monitor renal labs Protein Calculated 63-73 Fluid: ml 1337-7482 Nutritional Problem 1. Problem Problem excessive intake from enteral nutrition Etiology r/t Novasource Renal running at 50m/hr continously Signs/Symptoms: current TF providing 2400kcal and 104g protein which meets 150% of nutritional needs Malnutrition Alert Protein-Calorie Malnutrition N/A Is there a minimum of two criteria No selected? Query Text:Check all the applicable criteria. A minimum of two criteria are recommended for diagnosis of either severe or non-severe malnutrition. Intervention/Recommendation Recommendations by RD Decrease Calorie Intake Comments 1. Notified KG Quintero that current TF regimen provides excessive nutrition than actual needs. RN will change TF to 35ml/hr x 16hr daily. This provides 800ml total volume, 1600kcal, 73g protein, meeting 100% of nutritional needs. 2. monitor TF rate, tolerance, residual, wt daily, nutrition related labs 3. F/U as high risk in 07/19- 07/20 Expected Outcomes/Goals Expected Outcomes/Goals 1. pt to meet 100% of nutritional needs via nutrition support with tolerance 2. labs to improve, wt to remain stable
--- NOTE | 2017-07-18 16:25 | Progress Notes ---
DATE: 07/17/2017 PULMONARY/CRITICAL CARE CONSULTATION REASON FOR CONSULTATION: Hypoxemia. CONSULT NOTE: This is an 82-year-old female, who has a previous tracheostomy, has history of chronic renal failure and also on hemodialysis, apparently was admitted up here because of significant mental intimidation, hypotensive, altered and subsequently the patient was admitted to Intensive Care Unit, and I was asked to see this patient for further care and necessary treatment. Unfortunately, the patient is awake, very vaguely, but meaningful communication. No response could not be obtained from this patient. PAST MEDICAL HISTORY: History of previous hypertension, chronic encephalopathy, chronic respiratory failure and dyslipoproteinemia. Also history of dysphagia, aphasia, on a G-tube. Also history of tracheostomy and also history of chronic renal failure, on hemodialysis. The patient's other history is very limited to nil. SYMPTOMS: No smoking or any illicit uses what could be obtained. PHYSICAL EXAMINATION: VITAL SIGNS: The patient's recorded temperature, patient is afebrile. Pulse is 80s, blood pressure is 158/79 and patient's oxygen ____ 40%, it appears to be in mid 90s. NECK: Veins not visualized. There is a dialysis catheter on the right side of the chest. CHEST: Auscultation shows occasional rhonchi with diminished air entry. HEART: Regular. ABDOMEN: Shows G-tube, otherwise unremarkable. EXTREMITIES: Shows some dependent edema with some contracture. LABORATORY DATA: The patient's pertinent laboratory studies: Chest x-ray, haziness on the right base with possibly some effusion. The patient's other laboratory studies: White count is 20,000, hemoglobin 8.1 and electrolytes are okay except for potassium to 2.2. ASSESSMENT: 1. The patient has acute on chronic respiratory failure. 2. Hypoxemia related to possibly fluid overload and/or possibly secondary to pneumonia. 3. Chronic encephalopathy status, exact etiology not clear with history of chronic respiratory failure as well as a chronic renal failure, on hemodialysis. PLANS AND SUGGESTIONS: We will consider aggressive dialysis, inhaled bronchodilator. We will repeat sputum C and S. Follow up chest x-ray, repeat blood gasses, etc. and see how she does. JOB# [id number]
--- NOTE | 2017-07-18 16:39 | Internal Medicine Prog Note ---
Internal Medicine Subjective - Subjective Service Date: 07/18/17 Patient seen and examined:: with staff (she has hadley stool.no active bleeding.) Patient is:: non-verbal, non-interactive, in bed Per staff patient has:: no adverse event Internal Medicine Objective - Results Result Diagrams: 07/18/17 04:45 07/18/17 04:45 Recent Labs: Laboratory Last Values WBC 17.2 Th/cmm (4.8-10.8) H 07/18/17 04:45 RBC 2.94 Mil/cmm (3.80-5.20) L 07/18/17 04:45 Hgb 8.8 gm/dL (12-16) L 07/18/17 04:45 Hct 26.2 % (41.0-60) L D 07/18/17 04:45 MCV 88.9 fl (81-100) 07/18/17 04:45 MCH 29.8 pg (27.0-31.0) 07/18/17 04:45 MCHC Differential 33.6 pg (28.0-36.0) 07/18/17 04:45 RDW 17.8 % (11.5-20.0) 07/18/17 04:45 Plt Count 239 Th/cmm (150-400) 07/18/17 04:45 MPV 6.6 fl 07/18/17 04:45 Band Neutrophils % 4 % (0-10) 07/18/17 04:45 Neutrophils (Manual) 91 % (40-80) H 07/18/17 04:45 Lymphocytes 14 % (20-50) L 07/18/17 04:45 Monocytes 1 % (2-10) L 07/18/17 04:45 Eosinophils 0 % (0-5) 07/16/17 15:54 Basophils 0 % (0-3) 07/16/17 15:54 Hypochromia 1+ 07/16/17 15:54 Platelet Estimate ADEQUATE (NORMAL) 07/17/17 04:15 Platelet Morphology NORMAL (NORMAL) 07/17/17 04:15 Anisocytosis 1+ 07/17/17 04:15 RBC Morph Micro Appear ABNORMAL (NORMAL) 07/17/17 04:15 Specimen Source Arterial 07/18/17 09:00 Sample Site Right Radial 07/18/17 09:00 pH 7.38 (7.35-7.45) 07/18/17 09:00 pCO2 53.0 mmHg (35.0-45.0) H 07/18/17 09:00 pO2 75.0 mmHg (80.0-100.0) L 07/18/17 09:00 HCO3 28.8 mEq/L (20.0-26.0) H 07/18/17 09:00 Base Excess 5.0 mEq/L (-3.0-3.0) H 07/18/17 09:00 O2 Saturation 95.0 % (92.0-100.0) 07/18/17 09:00 Jae Test YES 07/18/17 09:00 Vent Rate NA 07/18/17 09:00 Inspired O2 60 07/18/17 09:00 Tidal Volume NA 07/18/17 09:00 PEEP NA 07/18/17 09:00 Pressure (ins/psv/peep) NA 07/18/17 09:00 Critical Value SH 07/18/17 09:00 Sodium 132 mEq/L (136-145) L 07/18/17 04:45 Potassium 2.9 mEq/L (3.5-5.1) L* 07/18/17 04:45 Chloride 95 mEq/L (98-107) L 07/18/17 04:45 Carbon Dioxide 29.0 mEq/L (21.0-31.0) 07/18/17 04:45 Anion Gap 10.9 (7.0-16.0) 07/18/17 04:45 BUN 53 mg/dL (7-25) H 07/18/17 04:45 Creatinine 2.4 mg/dL (0.6-1.2) H 07/18/17 04:45 Est GFR ( Amer) TNP 07/18/17 04:45 Est GFR (Non-Af Amer) TNP 07/18/17 04:45 BUN/Creatinine Ratio 22.1 07/18/17 04:45 Glucose 133 mg/dL (70-105) H 07/18/17 04:45 Whole Bld Lactic Acid 0.90 mmol/L (0.60-1.99) 07/16/17 15:54 Calcium 8.3 mg/dL (8.6-10.3) L 07/18/17 04:45 Total Bilirubin 0.4 mg/dL (0.3-1.0) 07/18/17 04:45 Direct Bilirubin 0.16 mg/dL (0.0-0.2) 07/18/17 04:45 AST 40 U/L (13-39) H 07/18/17 04:45 ALT 51 U/L (7-52) 07/18/17 04:45 Alkaline Phosphatase 439 U/L (34-104) H 07/18/17 04:45 Ammonia 39 umol/L (16-53) 07/18/17 04:45 Total Protein 5.9 gm/dL (6.0-8.3) L 07/18/17 04:45 Albumin 2.4 gm/dL (3.7-5.3) L 07/18/17 04:45 Globulin 3.5 gm/dL 07/18/17 04:45 Albumin/Globulin Ratio 0.7 (1.0-1.8) L 07/18/17 04:45 TSH 15.41 uIU/ml (0.34-5.60) H 07/18/17 04:45 Stool Occult Blood POSITIVE (NEGATIVE) 07/17/17 18:00 Random Vancomycin 22.4 ug/mL (5.0-40.0) 07/18/17 04:45 Blood Type O NEGATIVE 07/17/17 09:05 Antibody Screen NEGATIVE 07/17/17 09:05 Crossmatch See Detail 07/17/17 09:05 - Physical Exam Vitals and I&O: Vital Signs Temp 99.1 F 07/18/17 12:00 Pulse 84 07/18/17 15:31 Resp 23 07/18/17 15:31 BP 156/87 07/18/17 15:00 Pulse Ox 94 07/18/17 15:31 Intake & Output 07/17/17 07/18/17 07/18/17 18:59 06:59 18:59 Intake Total 50 250 100 Output Total 2 Balance 50 248 100 Weight (lbs) 52.163 kg Intake: Intake, IV Amount 50 50 100 Levofloxacin 250mg/50mL 50 50 250 mg In Premix Fluid 1 bag @ 50 mls/hr IV Q24HR@ 0900 [facility] Rx#:[id number] Meropenem 500 mg In 50 50 Sodium Chloride 0.9% 50 ml @ 100 mls/hr IV Q12HR [facility] Rx#:[id number] Other 200 Output: Stool 2 Other: # Voids 0 # Bowel Movements 2 Stool Characteristics Soft Soft Black Active Medications: Current Medications Acetaminophen (Tylenol 650mg/20.3ml Suspension) 650 mg PO Q6H PRN PRN Reason: Pain (Mild) Stop: 09/16/17 14:08 Last Admin: 07/18/17 14:22 Dose: 650 mg Albuterol/Ipratropium (Duoneb Neb) 3 ml HHN Q2HR PRN PRN Reason: SOB/WHEEZING Stop: 09/14/17 23:45 Last Admin: 07/17/17 02:50 Dose: 3 ml Albuterol/Ipratropium (Duoneb Neb) 3 ml HHN [id number] [facility] Stop: 09/16/17 06:59 Last Admin: 07/18/17 15:24 Dose: 3 ml Amlodipine Besylate (Norvasc) 10 mg GT QPM [facility] Stop: 09/15/17 16:59 Last Admin: 07/17/17 17:00 Dose: Not Given Atorvastatin Calcium (Lipitor) 20 mg GT HS [facility] Stop: 09/15/17 20:59 Last Admin: 07/17/17 20:16 Dose: 20 mg Budesonide (Pulmicort) 0.5 mg HHN BIDRT [facility] Stop: 09/16/17 06:59 Last Admin: 07/18/17 07:44 Dose: 0.5 mg Diphenhydramine HCl (Benadryl) 25 mg GT Q4H PRN PRN Reason: Itching Stop: 09/14/17 23:45 Epoetin Jose (Epogen) 10,000 units IVP MoWeFr [facility] Stop: 09/18/17 13:59 Epoetin Jose (Epogen) 10,000 units IVP 1400 [facility] Stop: 07/19/17 21:00 Escitalopram Oxalate (Lexapro) 10 mg GT DAILY [facility] PRN Reason: Protocol Stop: 09/15/17 08:59 Heparin Sodium (Porcine) (Heparin) 2,000 units HD UD [facility] Stop: 07/19/17 00:00 Last Admin: 07/18/17 08:11 Dose: Not Given Hydralazine HCl (Apresoline) 20 mg GT Q6H PRN PRN Reason: SBP ABOVE 150 Stop: 09/14/17 23:45 Levofloxacin 250 mg/ (Miscellaneous) 50 mls @ 50 mls/hr IV Q24HR@0900 [facility] Stop: 09/15/17 11:59 Last Infusion: 07/18/17 10:40 Dose: Infused Meropenem 500 mg/ Sodium (Chloride) 50 mls @ 100 mls/hr IV Q12HR [facility] Stop: 09/15/17 11:59 Last Infusion: 07/18/17 09:05 Dose: Infused Albumin Human (Albuminar 25%) 25 gm in 100 mls @ 50 mls/hr IV BRETT PRN PRN Reason: BP Support During HD Stop: 07/19/17 23:59 Albumin Human (Albuminar 25%) 25 gm in 100 mls @ 50 mls/hr IV X1 ONE Stop: 07/19/17 16:24 Potassium Chloride (Potassium Chloride) 20 meq in 100 mls @ 50 mls/hr IV X1 ONE Stop: 07/18/17 16:53 Last Admin: 07/18/17 15:42 Dose: 50 mls/hr Lactobacillus Rhamnosus (Culturelle) 1 each GT DAILY [facility] Stop: 09/15/17 08:59 Last Admin: 07/18/17 08:29 Dose: 1 each Lactulose (Cephulac) 20 gm GT Q6H PRN PRN Reason: Constipation Stop: 09/14/17 23:45 Lisinopril (Zestril) 40 mg PO DAILY [facility] Stop: 09/15/17 08:59 Last Admin: 07/18/17 08:33 Dose: 40 mg Lorazepam (Ativan) 1 mg IVP Q2HR PRN; Protocol PRN Reason: Agitation Stop: 09/14/17 22:59 Last Admin: 07/18/17 03:05 Dose: 1 mg Metoclopramide HCl (Reglan) 5 mg GT Q6H PRN PRN Reason: Nausea / Vomiting Stop: 09/15/17 00:29 Miscellaneous (Vancomycin Iv Per Pharmacy) 1 ea MC PRN PRN PRN Reason: PROTOCOL Stop: 09/14/17 21:42 Miscellaneous (Vte Chemical Prophylaxis Screen/ Admission) 1 ea MC PRN PRN PRN Reason: PROTOCOL Stop: 09/15/17 14:05 Miscellaneous (Clinical Monitoring) 1 ea MC DAILY PRN PRN Reason: RENAL Stop: 09/15/17 17:32 Mupirocin (Bactroban Oint) 1 appl NS BID [facility] Stop: 07/23/17 09:01 Nitroglycerin (Nitrostat) 0.4 mg SL Q5MIN PRN PRN Reason: Chest Pain Stop: 09/14/17 23:45 Nitroglycerin (Transderm-Nitro) 1 patch TD DAILY [facility] Stop: 09/15/17 08:59 Last Admin: 07/18/17 08:37 Dose: 1 patch Pantoprazole Sodium (Protonix) 40 mg GT Q12HR [facility] Stop: 09/15/17 00:14 Last Admin: 07/18/17 08:29 Dose: 40 mg Potassium Chloride (Potassium Chloride Elixir) 20 meq GT DAILY [facility] Stop: 09/16/17 08:59 Last Admin: 07/18/17 08:29 Dose: 20 meq General: demented HEENT: NC/AT, PERRLA, EOMI, anicteric sclerae, throat clear Neck: Supple, No JVD, No thyromegaly, +2 carotid pulse wo bruit, No LAD Lungs: CTAB Cardiovascular: RRR, Normal S1, Normal S2, without murmur Abdomen: soft, non-tender, non-distended Extremities: clear Neurological: bedbound Internal Medicine Assmt/Plan - Assessment Assessment: 1.SEPSIS. 2.ANEMIA. 3.RESPIRATORY FAILURE. 4.ESRF. 5.LOWER GI BLEEDING. - Plan Plan: CONTINUE ON CURRENT MEDICATION AND DIET.CBC AND CMP IN AM.GI CONSULTATION. Nutritional Asmnt/Malnutr-PDOC - Dietary Evaluation Malnutrition Findings (Please click <Entered> for more info): Nutritional Asmnt/Malnutrition Start: 07/17/17 12: 34 Text: Status: Complete Freq: Document 07/17/17 12:34 LCHENG (Rec: 07/17/17 13:13 [email or web address]) Nutritional Asmnt/Malnutrition Patient General Information Nutritional Screening High Risk Diagnosis asp pneumonia, animia, hypokalemia, leukocytosis Pertinent Medical Hx/Surgical Hx HTN, CHF, CVA/TIA, dyslipidemia, PUD/GERD, thyroid disorder, anxiety, depression, PEG, ESRD on dialysis Subjective Information pt seen sleeping in bed during the time of visit. CLARY [employer] was not running at this time. Spoke with RN , TF was turn off d/t pt changing, was going to restart now at same rate of 50ml/hr continously. Per RN, pt is tolerated TF well, no residual noted. Current Diet Order/ Nutrition Support Novasource renal 50ml/hr continously, providing 2400kcal, 109g Pertinent Medications Iron, Culturelle, Vancomycin Pertinent Labs 07/17 Na 133L, K 3.7, Cl 96L, BUN 83H, Cr 3.3H, Glu 146H, AST 53H, ALT 66H, Alkaline Phos 494H, Alb 2.5 Nutritional Hx/Data Height 1.47 m Height (Calculated Centimeters) 147.3 Current Weight (lbs) 52.163 kg Weight (Calculated Kilograms) 52.2 Weight (Calculated Grams) 48052.1 [place] Body Weight 90 % [place] Body Weight 124 Body Mass Index (BMI) 24.0 Weight Status Approriate GI Symptoms Usual diet at home Novasource Renal 50ml/hr x 16hr daily with water flush 150ml q6hr, providing 1600kcal , 73g protein Skin Integrity/Comment: intact Estimated Nutritional Goals BEE in Kcals: Using Current wt Calories/Kcals/Kg 30-35 Kcals Calculated 2670-2863 Protein: Using Current wt Protein g/k.2-1.4 monitor renal labs Protein Calculated 63-73 Fluid: ml 2865-2585 Nutritional Problem 1. Problem Problem excessive intake from enteral nutrition Etiology r/t Novasource Renal running at 50m/hr continously Signs/Symptoms: current TF providing 2400kcal and 104g protein which meets 150% of nutritional needs Malnutrition Alert Protein-Calorie Malnutrition N/A Is there a minimum of two criteria No selected? Query Text:Check all the applicable criteria. A minimum of two criteria are recommended for diagnosis of either severe or non-severe malnutrition. Intervention/Recommendation Recommendations by RD Decrease Calorie Intake Comments 1. Notified KG Quintero that current TF regimen provides excessive nutrition than actual needs. RN will change TF to 35ml/hr x 16hr daily. This provides 800ml total volume, 1600kcal, 73g protein, meeting 100% of nutritional needs. 2. monitor TF rate, tolerance, residual, wt daily, nutrition related labs 3. F/U as high risk in 07/19- 07/20 Expected Outcomes/Goals Expected Outcomes/Goals 1. pt to meet 100% of nutritional needs via nutrition support with tolerance 2. labs to improve, wt to remain stable
[2017-07-18] MEDS: Atorvastatin Calcium 10 MG TAB GT SCH (20:51)
[2017-07-19] MEDS ORDERED: Albumin 25% 25gm/100mL 25 GM/100 ML BTL IV PRN
[2017-07-19] MEDS: Albuterol/Ipratropium Neb 3 ML AERS HHN PRN ×2 (00:59→23:38)
[2017-07-19 05:16] LABS: HEMATOCRIT 29.8 % (41.0-60); HEMOGLOBIN 10.1 gm/dL (12-16); MEAN CORPUSCULAR HEMOGLOBIN 30.4 pg (27.0-31.0); MEAN CORPUSCULAR HGB CONC 33.8 pg (28.0-36.0); NEUTROPHILE ABSOLUTE 20.7 Th/cmm (1.8-8.0); PLATELET COUNT 239 Th/cmm (150-400); RED BLOOD COUNT 3.31 Mil/cmm (3.80-5.20); RED CELL DISTRIBUTION WIDTH 17.1 % (11.5-20.0)
[2017-07-19 05:22] LABS: ANION GAP 14.8 (7.0-16.0); BUN/CREATININE RATIO 24.5; CALCIUM SERUM 8.7 mg/dL (8.6-10.3); CARBON DIOXIDE 26.3 mEq/L (21.0-31.0); CHLORIDE 97 mEq/L (98-107); CREATININE - SERUM 3.3 mg/dL (0.6-1.2); GLUCOSE 119 mg/dL (70-105); MAGNESIUM 2.5 mg/dL (1.9-2.7); POTASSIUM SERUM 4.1 mEq/L (3.5-5.1); SODIUM SERUM 134 mEq/L (136-145)
[2017-07-19 05:23] LABS: WHITE BLOOD COUNT 23.3 Th/cmm (4.8-10.8)
[2017-07-19 05:30] LABS: BUN - UREA NITROGEN 81 mg/dL (7-25)
[2017-07-19 05:50] LABS: TOTAL CELLS COUNTED 100
[2017-07-19 05:51] LABS: BAND NEUTROPHILE 3 % (0-10); NEUTROPHILS 88 % (40-80)
[2017-07-19] MEDS: Budesonide 0.5 Mg/2 mL Ud HHN SCH (07:49)
[2017-07-19] MEDS: Albuterol/Ipratropium Neb 3 ML AERS HHN SCH ×4 (07:49→19:17)
[2017-07-19 08:59] LABS: pH 7.34 (7.35-7.45)
[2017-07-19 09:00] LABS: ABG SOURCE Arterial; ALLEN TEST Positive; BE(B) 1.5 mEq/L (-3.0-3.0); FIO2 50; HCO3 25.8 mEq/L (20.0-26.0)
[2017-07-19] MEDS: Lactobacillus Rhamnosus 10 Billion CFU Capsule GT SCH (09:08)
[2017-07-19] MEDS: Pantoprazole 40 mg/Packet GT SCH ×2 (09:08→22:16)
[2017-07-19] MEDS: Potassium Chloride Elixir 20 mEq /15 mL UDC GT SCH (09:08)
[2017-07-19] MEDS: Levofloxacin 250mg/50mL 250 MG in Premix Fluid 1 BAG IV SCH (09:09)
[2017-07-19] MEDS: Nitroglycerin 0.2 mg/hr Tdm TD SCH (09:56)
[2017-07-19] MEDS: Meropenem 500 MG in Sodium Chloride 0.9% 50 ML IV SCH ×2 (10:03→22:16)
--- NOTE | 2017-07-19 11:34 | Progress Notes ---
DATE: 07/18/2017 PULMONARY PROGRESS NOTE PROBLEM LIST: 1. Hypoxemic respiratory failure. 2. Pneumonia versus possible effusion. 3. History of encephalopathy. 4. History of chronic renal failure, on hemodialysis. SUBJECTIVE: The patient is awake, but not too much meaningful communication could be done; looks from side to side, but not purposefully. PHYSICAL EXAMINATION: VITAL SIGNS: The patient's recorded vitals: Temperature is 98.8, blood pressure 142/60, saturation currently okay on 60% of oxygen. NECK: Veins not visualized. CHEST: Shows diminished air entry at the bases. HEART: Regular. LABORATORY DATA AND IMAGING STUDIES: The patient's white count is 17,000, hemoglobin 8.8. ABG, she is 60%, compensated respiratory acidemia. Chest x-ray shows some suggestion of fluid overload, more so right than the left side with borderline cardiomegaly. ASSESSMENT: The patient is clinically stable, not much changed, still require high-flow oxygen with respiratory failure with possibly fluid overload, questionable pneumonia. PLANS AND SUGGESTIONS: Aggressive dialysis. We will go ahead and await for the cultures to concur, decrease FiO2 to 50% and go from there. JOB# [id number]
--- NOTE | 2017-07-19 12:19 | General Progress Note ---
Subjective - Review of Systems Service Date: 07/19/17 Events since last encounter: has septicemia will need removal of Permcath try using left arm Corie fistula, if not use Permcath then remove later Objective - Results Result Diagrams: 07/19/17 04:50 07/19/17 04:50 Recent Labs: Laboratory Last Values WBC 23.3 Th/cmm (4.8-10.8) H* 07/19/17 04:50 RBC 3.31 Mil/cmm (3.80-5.20) L 07/19/17 04:50 Hgb 10.1 gm/dL (12-16) L 07/19/17 04:50 Hct 29.8 % (41.0-60) L D 07/19/17 04:50 MCV 90.0 fl (81-100) 07/19/17 04:50 MCH 30.4 pg (27.0-31.0) 07/19/17 04:50 MCHC Differential 33.8 pg (28.0-36.0) 07/19/17 04:50 RDW 17.1 % (11.5-20.0) 07/19/17 04:50 Plt Count 239 Th/cmm (150-400) 07/19/17 04:50 MPV 7.0 fl 07/19/17 04:50 Neutrophils % [employer] 07/19/17 04:50 Band Neutrophils % 3 % (0-10) 07/19/17 04:50 Lymphocytes % [employer] 07/19/17 04:50 Monocytes % [employer] 07/19/17 04:50 Neutrophils (Manual) 88 % (40-80) H 07/19/17 04:50 Lymphocytes 7 % (20-50) L 07/19/17 04:50 Monocytes 2 % (2-10) 07/19/17 04:50 Eosinophils 0 % (0-5) 07/16/17 15:54 Basophils 0 % (0-3) 07/16/17 15:54 Hypochromia 1+ 07/16/17 15:54 Platelet Estimate ADEQUATE (NORMAL) 07/17/17 04:15 Platelet Morphology NORMAL (NORMAL) 07/17/17 04:15 Anisocytosis 1+ 07/17/17 04:15 RBC Morph Micro Appear ABNORMAL (NORMAL) 07/17/17 04:15 Specimen Source Arterial 07/19/17 08:45 Sample Site Right Radial 07/19/17 08:45 pH 7.34 (7.35-7.45) L 07/19/17 08:45 pCO2 52.0 mmHg (35.0-45.0) H 07/19/17 08:45 pO2 57.0 mmHg (80.0-100.0) L 07/19/17 08:45 HCO3 25.8 mEq/L (20.0-26.0) 07/19/17 08:45 Base Excess 1.5 mEq/L (-3.0-3.0) 07/19/17 08:45 O2 Saturation 87.0 % (92.0-100.0) L 07/19/17 08:45 Jae Test Positive 07/19/17 08:45 Vent Rate NA 07/19/17 08:45 Inspired O2 50 07/19/17 08:45 Tidal Volume NA 07/19/17 08:45 PEEP NA 07/19/17 08:45 Pressure (ins/psv/peep) NA 07/19/17 08:45 Critical Value LZHANG 07/19/17 08:45 Sodium 134 mEq/L (136-145) L 07/19/17 04:50 Potassium 4.1 mEq/L (3.5-5.1) 07/19/17 04:50 Chloride 97 mEq/L (98-107) L 07/19/17 04:50 Carbon Dioxide 26.3 mEq/L (21.0-31.0) 07/19/17 04:50 Anion Gap 14.8 (7.0-16.0) 07/19/17 04:50 BUN 81 mg/dL (7-25) H* 07/19/17 04:50 Creatinine 3.3 mg/dL (0.6-1.2) H 07/19/17 04:50 Est GFR ( Amer) TNP 07/19/17 04:50 Est GFR (Non-Af Amer) TNP 07/19/17 04:50 BUN/Creatinine Ratio 24.5 07/19/17 04:50 Glucose 119 mg/dL (70-105) H 07/19/17 04:50 POC Glucose 134 MG/DL (70 - 105) H 07/18/17 23:21 Whole Bld Lactic Acid 0.90 mmol/L (0.60-1.99) 07/16/17 15:54 Calcium 8.7 mg/dL (8.6-10.3) 07/19/17 04:50 Magnesium 2.5 mg/dL (1.9-2.7) 07/19/17 04:50 Total Bilirubin 0.4 mg/dL (0.3-1.0) 07/18/17 04:45 Direct Bilirubin 0.16 mg/dL (0.0-0.2) 07/18/17 04:45 AST 40 U/L (13-39) H 07/18/17 04:45 ALT 51 U/L (7-52) 07/18/17 04:45 Alkaline Phosphatase 439 U/L (34-104) H 07/18/17 04:45 Ammonia 39 umol/L (16-53) 07/18/17 04:45 Total Protein 5.9 gm/dL (6.0-8.3) L 07/18/17 04:45 Albumin 2.4 gm/dL (3.7-5.3) L 07/18/17 04:45 Globulin 3.5 gm/dL 07/18/17 04:45 Albumin/Globulin Ratio 0.7 (1.0-1.8) L 07/18/17 04:45 TSH 15.41 uIU/ml (0.34-5.60) H 07/18/17 04:45 Stool Occult Blood POSITIVE (NEGATIVE) 07/17/17 18:00 Random Vancomycin 18.8 ug/mL (5.0-40.0) 07/19/17 04:50 Blood Type O NEGATIVE 07/17/17 09:05 Antibody Screen NEGATIVE 07/17/17 09:05 Crossmatch See Detail 07/17/17 09:05 - Physical Exam Vitals and I&O: Vital Signs Temp 98.2 F 07/19/17 08:00 Pulse 85 07/19/17 11:31 Resp 20 07/19/17 11:31 BP 145/52 07/19/17 09:56 Pulse Ox 95 07/19/17 11:31 Intake & Output 07/18/17 07/19/17 07/19/17 18:59 06:59 18:59 Intake Total 750 650 Balance 750 650 Weight (lbs) 52.163 kg 52.163 kg Intake: Intake, IV Amount 200 50 Levofloxacin 250mg/50mL 50 250 mg In Premix Fluid 1 bag @ 50 mls/hr IV Q24HR@ 0900 [facility] Rx#:[id number] Meropenem 500 mg In 50 50 Sodium Chloride 0.9% 50 ml @ 100 mls/hr IV Q12HR [facility] Rx#:[id number] Tube Feeding 450 450 Other 100 150 Other: # Voids 0 0 # Bowel Movements 3 1 Stool Characteristics Soft Soft Black Black Black Active Medications: Current Medications Acetaminophen (Tylenol 650mg/20.3ml Suspension) 650 mg PO Q6H PRN PRN Reason: Pain (Mild) Stop: 09/16/17 14:08 Last Admin: 07/19/17 10:06 Dose: 650 mg Albuterol/Ipratropium (Duoneb Neb) 3 ml HHN Q2HR PRN PRN Reason: SOB/WHEEZING Stop: 09/14/17 23:45 Last Admin: 07/19/17 00:59 Dose: 3 ml Albuterol/Ipratropium (Duoneb Neb) 3 ml HHN [id number] [facility] Stop: 09/16/17 06:59 Last Admin: 07/19/17 11:26 Dose: 3 ml Amlodipine Besylate (Norvasc) 10 mg GT QPM [facility] Stop: 09/15/17 16:59 Last Admin: 07/18/17 17:17 Dose: 10 mg Atorvastatin Calcium (Lipitor) 20 mg GT HS [facility] Stop: 09/15/17 20:59 Last Admin: 07/18/17 20:51 Dose: 20 mg Budesonide (Pulmicort) 0.5 mg HHN BIDRT [facility] Stop: 09/16/17 06:59 Last Admin: 07/19/17 07:49 Dose: 0.5 mg Diphenhydramine HCl (Benadryl) 25 mg GT Q4H PRN PRN Reason: Itching Stop: 09/14/17 23:45 Epoetin Jose (Epogen) 10,000 units IVP MoWeFr [facility] Stop: 09/18/17 13:59 Epoetin Jsoe (Epogen) 10,000 units IVP 1400 [facility] Stop: 07/19/17 21:00 Escitalopram Oxalate (Lexapro) 10 mg GT DAILY [facility] PRN Reason: Protocol Stop: 09/15/17 08:59 Hydralazine HCl (Apresoline) 20 mg GT Q6H PRN PRN Reason: SBP ABOVE 150 Stop: 09/14/17 23:45 Levofloxacin 250 mg/ (Miscellaneous) 50 mls @ 50 mls/hr IV Q24HR@0900 [facility] Stop: 09/15/17 11:59 Last Admin: 07/19/17 09:09 Dose: 50 mls/hr Meropenem 500 mg/ Sodium (Chloride) 50 mls @ 100 mls/hr IV Q12HR [facility] Stop: 09/15/17 11:59 Last Admin: 07/19/17 10:03 Dose: 50 mls/hr Albumin Human (Albuminar 25%) 25 gm in 100 mls @ 50 mls/hr IV BRETT PRN PRN Reason: BP Support During HD Stop: 07/19/17 23:59 Albumin Human (Albuminar 25%) 25 gm in 100 mls @ 50 mls/hr IV X1 ONE Stop: 07/19/17 16:24 Vancomycin HCl 1 gm/ Sodium (Chloride) 250 mls @ 165 mls/hr IV 1200 [facility] Stop: 07/19/17 16:00 Lactobacillus Rhamnosus (Culturelle) 1 each GT DAILY [facility] Stop: 09/15/17 08:59 Last Admin: 07/19/17 09:08 Dose: 1 each Lactulose (Cephulac) 20 gm GT Q6H PRN PRN Reason: Constipation Stop: 09/14/17 23:45 Lisinopril (Zestril) 40 mg PO DAILY [facility] Stop: 09/15/17 08:59 Last Admin: 07/19/17 09:14 Dose: 40 mg Lorazepam (Ativan) 1 mg IVP Q2HR PRN; Protocol PRN Reason: Agitation Stop: 09/14/17 22:59 Last Admin: 07/19/17 00:38 Dose: 1 mg Metoclopramide HCl (Reglan) 5 mg GT Q6H PRN PRN Reason: Nausea / Vomiting Stop: 09/15/17 00:29 Miscellaneous (Vancomycin Iv Per Pharmacy) 1 ea PRN PRN PRN Reason: PROTOCOL Stop: 09/14/17 21:42 Miscellaneous (Vte Chemical Prophylaxis Screen/ Admission) 1 ea PRN PRN PRN Reason: PROTOCOL Stop: 09/15/17 14:05 Miscellaneous (Clinical Monitoring) 1 ea MC DAILY PRN PRN Reason: RENAL Stop: 09/15/17 17:32 Mupirocin (Bactroban Oint) 1 appl NS BID [facility] Stop: 07/23/17 09:01 Last Admin: 07/19/17 09:18 Dose: 1 appl Nitroglycerin (Nitrostat) 0.4 mg SL Q5MIN PRN PRN Reason: Chest Pain Stop: 09/14/17 23:45 Nitroglycerin (Transderm-Nitro) 1 patch TD DAILY [facility] Stop: 09/15/17 08:59 Last Admin: 07/19/17 09:56 Dose: 1 patch Pantoprazole Sodium (Protonix) 40 mg GT Q12HR [facility] Stop: 09/15/17 00:14 Last Admin: 07/19/17 09:08 Dose: 40 mg Potassium Chloride (Potassium Chloride Elixir) 20 meq GT DAILY [facility] Stop: 09/16/17 08:59 Last Admin: 07/19/17 09:08 Dose: 20 meq General: Alert, Mild distress HEENT: Atraumatic, PERRLA, EOMI, Mucous membr. moist/pink Neck: Supple, +2 carotid pulse wo bruit Cardiovascular: Regular rate, Normal S1, Normal S2 Lungs: Other (rhonchi, congestion) Abdomen: Bowel sounds, Soft Extremities: no Edema Neurological: Sensation intact Skin: no Rash Psych/Mental Status: Mood NL Assessment/Plan - Problem List Patient Problems: All Active Problems LOW SAO2 AND LETHARGY (Acute) Nutritional Asmnt/Malnutr-PDOC - Dietary Evaluation Malnutrition Findings (Please click <Entered> for more info): Nutritional Asmnt/Malnutrition Start: 07/17/17 12: 34 Text: Status: Complete Freq: Document 07/17/17 12:34 LCHENG (Rec: 07/17/17 13:13 LCHENG [email or web address]) Nutritional Asmnt/Malnutrition Patient General Information Nutritional Screening High Risk Diagnosis asp pneumonia, animia, hypokalemia, leukocytosis Pertinent Medical Hx/Surgical Hx HTN, CHF, CVA/TIA, dyslipidemia, PUD/GERD, thyroid disorder, anxiety, depression, PEG, ESRD on dialysis Subjective Information pt seen sleeping in bed during the time of visit. CLARY [employer] was not running at this time. Spoke with RN , TF was turn off d/t pt changing, was going to restart now at same rate of 50ml/hr continously. Per RN, pt is tolerated TF well, no residual noted. Current Diet Order/ Nutrition Support Novasource renal 50ml/hr continously, providing 2400kcal, 109g Pertinent Medications Iron, Culturelle, Vancomycin Pertinent Labs 07/17 Na 133L, K 3.7, Cl 96L, BUN 83H, Cr 3.3H, Glu 146H, AST 53H, ALT 66H, Alkaline Phos 494H, Alb 2.5 Nutritional Hx/Data Height 1.47 m Height (Calculated Centimeters) 147.3 Current Weight (lbs) 52.163 kg Weight (Calculated Kilograms) 52.2 Weight (Calculated Grams) 70043.1 [place] Body Weight 90 % [place] Body Weight 124 Body Mass Index (BMI) 24.0 Weight Status Approriate GI Symptoms Usual diet at home Novasource Renal 50ml/hr x 16hr daily with water flush 150ml q6hr, providing 1600kcal , 73g protein Skin Integrity/Comment: intact Estimated Nutritional Goals BEE in Kcals: Using Current wt Calories/Kcals/Kg 30-35 Kcals Calculated 3956-9800 Protein: Using Current wt Protein g/k.2-1.4 monitor renal labs Protein Calculated 63-73 Fluid: ml 8446-0202 Nutritional Problem 1. Problem Problem excessive intake from enteral nutrition Etiology r/t Novasource Renal running at 50m/hr continously Signs/Symptoms: current TF providing 2400kcal and 104g protein which meets 150% of nutritional needs Malnutrition Alert Protein-Calorie Malnutrition N/A Is there a minimum of two criteria No selected? Query Text:Check all the applicable criteria. A minimum of two criteria are recommended for diagnosis of either severe or non-severe malnutrition. Intervention/Recommendation Recommendations by RD Decrease Calorie Intake Comments 1. Notified RN Ingrid that current TF regimen provides excessive nutrition than actual needs. RN will change TF to 35ml/hr x 16hr daily. This provides 800ml total volume, 1600kcal, 73g protein, meeting 100% of nutritional needs. 2. monitor TF rate, tolerance, residual, wt daily, nutrition related labs 3. F/U as high risk in 07/19- 07/20 Expected Outcomes/Goals Expected Outcomes/Goals 1. pt to meet 100% of nutritional needs via nutrition support with tolerance 2. labs to improve, wt to remain stable
--- NOTE | 2017-07-19 13:50 | General Progress Note ---
Subjective - Review of Systems Service Date: 07/19/17 Subjective: more awake, mild tachypnea, right arm & back pain Objective - Results Result Diagrams: 07/19/17 04:50 07/19/17 04:50 Recent Labs: Laboratory Last Values WBC 23.3 Th/cmm (4.8-10.8) H* 07/19/17 04:50 RBC 3.31 Mil/cmm (3.80-5.20) L 07/19/17 04:50 Hgb 10.1 gm/dL (12-16) L 07/19/17 04:50 Hct 29.8 % (41.0-60) L D 07/19/17 04:50 MCV 90.0 fl (81-100) 07/19/17 04:50 MCH 30.4 pg (27.0-31.0) 07/19/17 04:50 MCHC Differential 33.8 pg (28.0-36.0) 07/19/17 04:50 RDW 17.1 % (11.5-20.0) 07/19/17 04:50 Plt Count 239 Th/cmm (150-400) 07/19/17 04:50 MPV 7.0 fl 07/19/17 04:50 Neutrophils % NOTCHING MACHINE OPERATOR 07/19/17 04:50 Band Neutrophils % 3 % (0-10) 07/19/17 04:50 Lymphocytes % NOTCHING MACHINE OPERATOR 07/19/17 04:50 Monocytes % NOTCHING MACHINE OPERATOR 07/19/17 04:50 Neutrophils (Manual) 88 % (40-80) H 07/19/17 04:50 Lymphocytes 7 % (20-50) L 07/19/17 04:50 Monocytes 2 % (2-10) 07/19/17 04:50 Eosinophils 0 % (0-5) 07/16/17 15:54 Basophils 0 % (0-3) 07/16/17 15:54 Hypochromia 1+ 07/16/17 15:54 Platelet Estimate ADEQUATE (NORMAL) 07/17/17 04:15 Platelet Morphology NORMAL (NORMAL) 07/17/17 04:15 Anisocytosis 1+ 07/17/17 04:15 RBC Morph Micro Appear ABNORMAL (NORMAL) 07/17/17 04:15 Specimen Source Arterial 07/19/17 08:45 Sample Site Right Radial 07/19/17 08:45 pH 7.34 (7.35-7.45) L 07/19/17 08:45 pCO2 52.0 mmHg (35.0-45.0) H 07/19/17 08:45 pO2 57.0 mmHg (80.0-100.0) L 07/19/17 08:45 HCO3 25.8 mEq/L (20.0-26.0) 07/19/17 08:45 Base Excess 1.5 mEq/L (-3.0-3.0) 07/19/17 08:45 O2 Saturation 87.0 % (92.0-100.0) L 07/19/17 08:45 Jae Test Positive 07/19/17 08:45 Vent Rate NA 07/19/17 08:45 Inspired O2 50 07/19/17 08:45 Tidal Volume NA 07/19/17 08:45 PEEP NA 07/19/17 08:45 Pressure (ins/psv/peep) NA 07/19/17 08:45 Critical Value LZHANG 07/19/17 08:45 Sodium 134 mEq/L (136-145) L 07/19/17 04:50 Potassium 4.1 mEq/L (3.5-5.1) 07/19/17 04:50 Chloride 97 mEq/L (98-107) L 07/19/17 04:50 Carbon Dioxide 26.3 mEq/L (21.0-31.0) 07/19/17 04:50 Anion Gap 14.8 (7.0-16.0) 07/19/17 04:50 BUN 81 mg/dL (7-25) H* 07/19/17 04:50 Creatinine 3.3 mg/dL (0.6-1.2) H 07/19/17 04:50 Est GFR ( Amer) TNP 07/19/17 04:50 Est GFR (Non-Af Amer) TNP 07/19/17 04:50 BUN/Creatinine Ratio 24.5 07/19/17 04:50 Glucose 119 mg/dL (70-105) H 07/19/17 04:50 POC Glucose 134 MG/DL (70 - 105) H 07/18/17 23:21 Whole Bld Lactic Acid 0.90 mmol/L (0.60-1.99) 07/16/17 15:54 Calcium 8.7 mg/dL (8.6-10.3) 07/19/17 04:50 Magnesium 2.5 mg/dL (1.9-2.7) 07/19/17 04:50 Total Bilirubin 0.4 mg/dL (0.3-1.0) 07/18/17 04:45 Direct Bilirubin 0.16 mg/dL (0.0-0.2) 07/18/17 04:45 AST 40 U/L (13-39) H 07/18/17 04:45 ALT 51 U/L (7-52) 07/18/17 04:45 Alkaline Phosphatase 439 U/L (34-104) H 07/18/17 04:45 Ammonia 39 umol/L (16-53) 07/18/17 04:45 Total Protein 5.9 gm/dL (6.0-8.3) L 07/18/17 04:45 Albumin 2.4 gm/dL (3.7-5.3) L 07/18/17 04:45 Globulin 3.5 gm/dL 07/18/17 04:45 Albumin/Globulin Ratio 0.7 (1.0-1.8) L 07/18/17 04:45 TSH 15.41 uIU/ml (0.34-5.60) H 07/18/17 04:45 Stool Occult Blood POSITIVE (NEGATIVE) 07/17/17 18:00 Random Vancomycin 18.8 ug/mL (5.0-40.0) 07/19/17 04:50 Blood Type O NEGATIVE 07/17/17 09:05 Antibody Screen NEGATIVE 07/17/17 09:05 Crossmatch See Detail 07/17/17 09:05 - Physical Exam Vitals and I&O: Vital Signs Temp 97.4 F 07/19/17 12:26 Pulse 88 07/19/17 12:26 Resp 21 07/19/17 12:26 BP 145/62 07/19/17 12:26 Pulse Ox 100 07/19/17 13:33 Intake & Output 07/18/17 07/19/17 07/19/17 18:59 06:59 18:59 Intake Total 750 650 Balance 750 650 Weight (lbs) 52.163 kg 52.163 kg Intake: Intake, IV Amount 200 50 Levofloxacin 250mg/50mL 50 250 mg In Premix Fluid 1 bag @ 50 mls/hr IV Q24HR@ 0900 [facility] Rx#:[id number] Meropenem 500 mg In 50 50 Sodium Chloride 0.9% 50 ml @ 100 mls/hr IV Q12HR [facility] Rx#:[id number] Tube Feeding 450 450 Other 100 150 Other: # Voids 0 0 # Bowel Movements 3 1 Stool Characteristics Soft Soft Black Black Black Active Medications: Current Medications Acetaminophen (Tylenol 650mg/20.3ml Suspension) 650 mg PO Q6H PRN PRN Reason: Pain (Mild) Stop: 09/16/17 14:08 Last Admin: 07/19/17 10:06 Dose: 650 mg Albuterol/Ipratropium (Duoneb Neb) 3 ml HHN Q2HR PRN PRN Reason: SOB/WHEEZING Stop: 09/14/17 23:45 Last Admin: 07/19/17 00:59 Dose: 3 ml Albuterol/Ipratropium (Duoneb Neb) 3 ml HHN [id number] [facility] Stop: 09/16/17 06:59 Last Admin: 07/19/17 11:26 Dose: 3 ml Amlodipine Besylate (Norvasc) 10 mg GT QPM [facility] Stop: 09/15/17 16:59 Last Admin: 07/18/17 17:17 Dose: 10 mg Atorvastatin Calcium (Lipitor) 20 mg GT HS [facility] Stop: 09/15/17 20:59 Last Admin: 07/18/17 20:51 Dose: 20 mg Budesonide (Pulmicort) 0.5 mg HHN BIDRT [facility] Stop: 09/16/17 06:59 Last Admin: 07/19/17 07:49 Dose: 0.5 mg Diphenhydramine HCl (Benadryl) 25 mg GT Q4H PRN PRN Reason: Itching Stop: 09/14/17 23:45 Epoetin Jose (Epogen) 10,000 units IVP MoWeFr [facility] Stop: 09/18/17 13:59 Epoetin Jose (Epogen) 10,000 units IVP 1400 [facility] Stop: 07/19/17 21:00 Escitalopram Oxalate (Lexapro) 10 mg GT DAILY [facility] PRN Reason: Protocol Stop: 09/15/17 08:59 Hydralazine HCl (Apresoline) 20 mg GT Q6H PRN PRN Reason: SBP ABOVE 150 Stop: 09/14/17 23:45 Levofloxacin 250 mg/ (Miscellaneous) 50 mls @ 50 mls/hr IV Q24HR@0900 [facility] Stop: 09/15/17 11:59 Last Admin: 07/19/17 09:09 Dose: 50 mls/hr Meropenem 500 mg/ Sodium (Chloride) 50 mls @ 100 mls/hr IV Q12HR [facility] Stop: 09/15/17 11:59 Last Admin: 07/19/17 10:03 Dose: 50 mls/hr Albumin Human (Albuminar 25%) 25 gm in 100 mls @ 50 mls/hr IV BRETT PRN PRN Reason: BP Support During HD Stop: 07/19/17 23:59 Albumin Human (Albuminar 25%) 25 gm in 100 mls @ 50 mls/hr IV X1 ONE Stop: 07/19/17 16:24 Vancomycin HCl 1 gm/ Sodium (Chloride) 250 mls @ 165 mls/hr IV 1200 [facility] Stop: 07/19/17 16:00 Last Admin: 07/19/17 12:36 Dose: 165 mls/hr Lactobacillus Rhamnosus (Culturelle) 1 each GT DAILY [facility] Stop: 09/15/17 08:59 Last Admin: 07/19/17 09:08 Dose: 1 each Lactulose (Cephulac) 20 gm GT Q6H PRN PRN Reason: Constipation Stop: 09/14/17 23:45 Lisinopril (Zestril) 40 mg PO DAILY [facility] Stop: 09/15/17 08:59 Last Admin: 07/19/17 09:14 Dose: 40 mg Lorazepam (Ativan) 1 mg IVP Q2HR PRN; Protocol PRN Reason: Agitation Stop: 09/14/17 22:59 Last Admin: 07/19/17 00:38 Dose: 1 mg Metoclopramide HCl (Reglan) 5 mg GT Q6H PRN PRN Reason: Nausea / Vomiting Stop: 09/15/17 00:29 Miscellaneous (Vancomycin Iv Per Pharmacy) 1 ea PRN PRN PRN Reason: PROTOCOL Stop: 09/14/17 21:42 Miscellaneous (Vte Chemical Prophylaxis Screen/ Admission) 1 ea PRN PRN PRN Reason: PROTOCOL Stop: 09/15/17 14:05 Miscellaneous (Clinical Monitoring) 1 ea MC DAILY PRN PRN Reason: RENAL Stop: 09/15/17 17:32 Mupirocin (Bactroban Oint) 1 appl NS BID [facility] Stop: 07/23/17 09:01 Last Admin: 07/19/17 09:18 Dose: 1 appl Nitroglycerin (Nitrostat) 0.4 mg SL Q5MIN PRN PRN Reason: Chest Pain Stop: 09/14/17 23:45 Nitroglycerin (Transderm-Nitro) 1 patch TD DAILY [facility] Stop: 09/15/17 08:59 Last Admin: 07/19/17 09:56 Dose: 1 patch Pantoprazole Sodium (Protonix) 40 mg GT Q12HR [facility] Stop: 09/15/17 00:14 Last Admin: 07/19/17 09:08 Dose: 40 mg Potassium Chloride (Potassium Chloride Elixir) 20 meq GT DAILY [facility] Stop: 09/16/17 08:59 Last Admin: 07/19/17 09:08 Dose: 20 meq General: Alert, Mild distress HEENT: Atraumatic, PERRLA, EOMI, Mucous membr. moist/pink Neck: Supple, +2 carotid pulse wo bruit Cardiovascular: Regular rate, Normal S1, Normal S2 Lungs: Other (rhonchi, congestion) Abdomen: Bowel sounds, Soft Extremities: no Edema Neurological: Sensation intact Skin: no Rash Psych/Mental Status: Mood NL Assessment/Plan - Problem List Patient Problems: All Active Problems LOW SAO2 AND LETHARGY (Acute) - Assessment Assessment: ESRD on HD ALOC Resp failure Acute liver failure Severe malnutrition Dyslipidemia Anemia of CD - Plan Plan: Lab - Result Diagrams 07/18/17 04:45 07/18/17 04:45 Current Medications Acetaminophen (Tylenol 650mg/20.3ml Suspension) 650 mg PO Q6H PRN PRN Reason: Pain (Mild) Stop: 09/16/17 14:08 Albuterol/Ipratropium (Duoneb Neb) 3 ml HHN Q2HR PRN PRN Reason: SOB/WHEEZING Stop: 09/14/17 23:45 Last Admin: 07/17/17 02:50 Dose: 3 ml Albuterol/Ipratropium (Duoneb Neb) 3 ml HHN [id number] [facility] Stop: 09/16/17 06:59 Last Admin: 07/18/17 11:09 Dose: 3 ml Amlodipine Besylate (Norvasc) 10 mg GT QPM [facility] Stop: 09/15/17 16:59 Last Admin: 07/17/17 17:00 Dose: Not Given Atorvastatin Calcium (Lipitor) 20 mg GT HS [facility] Stop: 09/15/17 20:59 Last Admin: 07/17/17 20:16 Dose: 20 mg Budesonide (Pulmicort) 0.5 mg HHN BIDRT [facility] Stop: 09/16/17 06:59 Last Admin: 07/18/17 07:44 Dose: 0.5 mg Diphenhydramine HCl (Benadryl) 25 mg GT Q4H PRN PRN Reason: Itching Stop: 09/14/17 23:45 Escitalopram Oxalate (Lexapro) 10 mg GT DAILY [facility] PRN Reason: Protocol Stop: 09/15/17 08:59 Ferrous Sulfate (Iron) 300 mg GT Q12H [facility] Stop: 09/15/17 07:29 Last Admin: 07/18/17 06:36 Dose: 300 mg Heparin Sodium (Porcine) (Heparin) 2,000 units HD UD [facility] Stop: 07/19/17 00:00 Last Admin: 07/18/17 08:11 Dose: Not Given Hydralazine HCl (Apresoline) 20 mg GT Q6H PRN PRN Reason: SBP ABOVE 150 Stop: 09/14/17 23:45 Levofloxacin 250 mg/ (Miscellaneous) 50 mls @ 50 mls/hr IV Q24HR@0900 [facility] Stop: 09/15/17 11:59 Last Infusion: 07/18/17 10:40 Dose: Infused Meropenem 500 mg/ Sodium (Chloride) 50 mls @ 100 mls/hr IV Q12HR [facility] Stop: 09/15/17 11:59 Last Infusion: 07/18/17 09:05 Dose: Infused Albumin Human (Albuminar 25%) 25 gm in 100 mls @ 50 mls/hr IV PRN PRN PRN Reason: BP Support During HD Lactobacillus Rhamnosus (Culturelle) 1 each GT DAILY [facility] Stop: 09/15/17 08:59 Last Admin: 07/18/17 08:29 Dose: 1 each Lactulose (Cephulac) 20 gm GT Q6H PRN PRN Reason: Constipation Stop: 09/14/17 23:45 Lisinopril (Zestril) 40 mg PO DAILY [facility] Stop: 09/15/17 08:59 Last Admin: 07/18/17 08:33 Dose: 40 mg Lorazepam (Ativan) 1 mg IVP Q2HR PRN; Protocol PRN Reason: Agitation Stop: 09/14/17 22:59 Last Admin: 07/18/17 03:05 Dose: 1 mg Metoclopramide HCl (Reglan) 5 mg GT Q6H PRN PRN Reason: Nausea / Vomiting Stop: 09/15/17 00:29 Miscellaneous (Vancomycin Iv Per Pharmacy) 1 ea MC PRN PRN PRN Reason: PROTOCOL Stop: 09/14/17 21:42 Miscellaneous (Darbepoetin Jose In Polysorbat [Aranesp]) 0.1 mg IJ QWEEK 0730 [facility] Stop: 09/14/17 23:44 Miscellaneous (Vte Chemical Prophylaxis Screen/ Admission) 1 ea PRN PRN PRN Reason: PROTOCOL Stop: 09/15/17 14:05 Miscellaneous (Clinical Monitoring) 1 ea MC DAILY PRN PRN Reason: RENAL Stop: 09/15/17 17:32 Mupirocin (Bactroban Oint) 1 appl NS BID [facility] Stop: 07/23/17 09:01 Nitroglycerin (Nitrostat) 0.4 mg SL Q5MIN PRN PRN Reason: Chest Pain Stop: 09/14/17 23:45 Nitroglycerin (Transderm-Nitro) 1 patch TD DAILY [facility] Stop: 09/15/17 08:59 Last Admin: 07/18/17 08:37 Dose: 1 patch Pantoprazole Sodium (Protonix) 40 mg GT Q12HR [facility] Stop: 09/15/17 00:14 Last Admin: 07/18/17 08:29 Dose: 40 mg Potassium Chloride (Potassium Chloride Elixir) 20 meq GT DAILY [facility] Stop: 09/16/17 08:59 Last Admin: 07/18/17 08:29 Dose: 20 meq Lab - Result Diagrams 07/19/17 04:50 07/19/17 04:50 CXR revealed increased infiltrates, congestion schedule for HD again in am replace K, BC x 2 grew C. striatum Use left AVF 1st, if nonfinc, try perma cath before removal Nutritional Asmnt/Malnutr-PDOC - Dietary Evaluation Malnutrition Findings (Please click <Entered> for more info): Nutritional Asmnt/Malnutrition Start: 07/17/17 12: 34 Text: Status: Complete Freq: Document 07/17/17 12:34 MAI (Rec: 07/17/17 13:13 [email or web address] [id number]) Nutritional Asmnt/Malnutrition Patient General Information Nutritional Screening High Risk Diagnosis asp pneumonia, animia, hypokalemia, leukocytosis Pertinent Medical Hx/Surgical Hx HTN, CHF, CVA/TIA, dyslipidemia, PUD/GERD, thyroid disorder, anxiety, depression, PEG, ESRD on dialysis Subjective Information pt seen sleeping in bed during the time of visit. TF RespicardiaasWhispering [place] was not running at this time. Spoke with KG Quintero , TF was turn off d/t pt changing, was going to restart now at same rate of 50ml/hr continously. Per RN, pt is tolerated TF well, no residual noted. Current Diet Order/ Nutrition Support Novasource renal 50ml/hr continously, providing 2400kcal, 109g Pertinent Medications Iron, Culturelle, Vancomycin Pertinent Labs 07/17 Na 133L, K 3.7, Cl 96L, BUN 83H, Cr 3.3H, Glu 146H, AST 53H, ALT 66H, Alkaline Phos 494H, Alb 2.5 Nutritional Hx/Data Height 1.47 m Height (Calculated Centimeters) 147.3 Current Weight (lbs) 52.163 kg Weight (Calculated Kilograms) 52.2 Weight (Calculated Grams) 88958.1 [place] Body Weight 90 % [place] Body Weight 124 Body Mass Index (BMI) 24.0 Weight Status Approriate GI Symptoms Usual diet at home Novasource Renal 50ml/hr x 16hr daily with water flush 150ml q6hr, providing 1600kcal , 73g protein Skin Integrity/Comment: intact Estimated Nutritional Goals BEE in Kcals: Using Current wt Calories/Kcals/Kg 30-35 Kcals Calculated 4173-7374 Protein: Using Current wt Protein g/k.2-1.4 monitor renal labs Protein Calculated 63-73 Fluid: ml [id number] Nutritional Problem 1. Problem Problem excessive intake from enteral nutrition Etiology r/t Novasource Renal running at 50m/hr continously Signs/Symptoms: current TF providing 2400kcal and 104g protein which meets 150% of nutritional needs Malnutrition Alert Protein-Calorie Malnutrition N/A Is there a minimum of two criteria No selected? Query Text:Check all the applicable criteria. A minimum of two criteria are recommended for diagnosis of either severe or non-severe malnutrition. Intervention/Recommendation Recommendations by RD Decrease Calorie Intake Comments 1. Notified RN that current TF regimen provides excessive nutrition than actual needs. RN will change TF to 35ml/hr x 16hr daily. This provides 800ml total volume, 1600kcal, 73g protein, meeting 100% of nutritional needs. 2. monitor TF rate, tolerance, residual, wt daily, nutrition related labs 3. F/U as high risk in 07/19- 07/20 Expected Outcomes/Goals Expected Outcomes/Goals 1. pt to meet 100% of nutritional needs via nutrition support with tolerance 2. labs to improve, wt to remain stable
[2017-07-19] MEDS ORDERED: Epoetin Alfa 20000 Units/mL Vial IVP SCH (14:00)
[2017-07-19] MEDS ORDERED: Albumin 25% 25gm/100mL 25 GM/100 ML BTL IV ONE (14:25)
[2017-07-19] MEDS ORDERED: Probiotic Screen MC PRN (14:38)
--- NOTE | 2017-07-19 15:13 | Operative Report ---
DATE OF SURGERY: 07/19/2017 INPATIENT GASTROINTESTINAL CONSULTATION REFERRING PHYSICIAN: Dr. Zhong. REASON FOR CONSULTATION: Melena and anemia. HISTORY OF PRESENT ILLNESS: This is an 82-year-old female with hypertension, chronic kidney disease, and respiratory failure with dialysis and it became obtunded and hypotensive and therefore was brought to the hospital, now in the ICU. The patient is otherwise a poor historian ____ melena. PAST MEDICAL HISTORY: Hypertension, chronic kidney disease, respiratory failure, hyperlipidemia, and dysphagia. PAST SURGICAL HISTORY: Tracheostomy, G-tube placement, and AV shunt placement. FAMILY HISTORY: Noncontributory. SOCIAL HISTORY: No tobacco, alcohol, or IV drug usage. ALLERGIES: Atenolol, carvedilol, and cyclosporin, metoprolol, and physostigmine. MEDICATIONS: Tylenol, albumin, Norvasc, Lipitor, Pulmicort, Benadryl, Epogen, Lexapro, Apresoline, lactulose, Levaquin, Zestril, Ativan, meropenem, Reglan, vancomycin, and Protonix. REVIEW OF SYSTEMS: Unobtainable. PHYSICAL EXAMINATION: VITAL SIGNS: Temperature 98.2, breathing 17, pulse of 90, blood pressure is 160/68, and satting 97%. GENERAL: In no apparent distress. Eyes are anicteric. Normal conjunctivae. HEENT: Normocephalic and atraumatic. Moist mucous membranes. NECK: Soft and supple. CHEST: Coarse breath sounds. CARDIOVASCULAR: Regular rate and rhythm. ABDOMEN: Soft, nontender, and nondistended with a G-tube. SKIN: Warm and dry. EXTREMITIES: Reveal no cyanosis. PSYCHOLOGICAL: Somnolent. LABORATORY DATA: Labs showed T-bili 0.4, AST 40, ALT 51, and alkaline phosphatase 439. White count is 22.3, hemoglobin 10.1, and platelets of 239. Stool OB was positive. IMPRESSION: An 82-year-old female with anemia and melena. Cause could be an upper source. The patient does have underlying dysphagia, has a G-tube in place. She currently is on Protonix and would continue this twice a day. PLAN: 1. We will consider EGD. 2. Continue Protonix. 3. Follow H and H and transfuse as needed. 4. Continue tube feeds as tolerated. Thank you for allowing me to participate. Please call me if any questions. JOB# [id number]
--- NOTE | 2017-07-19 17:35 | Infectious Disease Prog Note ---
Infectious Disease Subjective - Review of Systems Service Date: 07/19/17 Subjective: cc line sepsis corynbacterium pn hpi- pt on iv bax dr hernandez consult requested ros no fver o/e vs chest clera abd soft trach pulse Infectious Disease Objective - Results Result Diagrams: 07/19/17 04:50 07/19/17 04:50 Recent Labs: Laboratory Last Values WBC 23.3 Th/cmm (4.8-10.8) H* 07/19/17 04:50 RBC 3.31 Mil/cmm (3.80-5.20) L 07/19/17 04:50 Hgb 10.1 gm/dL (12-16) L 07/19/17 04:50 Hct 29.8 % (41.0-60) L D 07/19/17 04:50 MCV 90.0 fl (81-100) 07/19/17 04:50 MCH 30.4 pg (27.0-31.0) 07/19/17 04:50 MCHC Differential 33.8 pg (28.0-36.0) 07/19/17 04:50 RDW 17.1 % (11.5-20.0) 07/19/17 04:50 Plt Count 239 Th/cmm (150-400) 07/19/17 04:50 MPV 7.0 fl 07/19/17 04:50 Neutrophils % [employer] 07/19/17 04:50 Band Neutrophils % 3 % (0-10) 07/19/17 04:50 Lymphocytes % [employer] 07/19/17 04:50 Monocytes % [employer] 07/19/17 04:50 Neutrophils (Manual) 88 % (40-80) H 07/19/17 04:50 Lymphocytes 7 % (20-50) L 07/19/17 04:50 Monocytes 2 % (2-10) 07/19/17 04:50 Eosinophils 0 % (0-5) 07/16/17 15:54 Basophils 0 % (0-3) 07/16/17 15:54 Hypochromia 1+ 07/16/17 15:54 Platelet Estimate ADEQUATE (NORMAL) 07/17/17 04:15 Platelet Morphology NORMAL (NORMAL) 07/17/17 04:15 Anisocytosis 1+ 07/17/17 04:15 RBC Morph Micro Appear ABNORMAL (NORMAL) 07/17/17 04:15 Specimen Source Arterial 07/19/17 08:45 Sample Site Right Radial 07/19/17 08:45 pH 7.34 (7.35-7.45) L 07/19/17 08:45 pCO2 52.0 mmHg (35.0-45.0) H 07/19/17 08:45 pO2 57.0 mmHg (80.0-100.0) L 07/19/17 08:45 HCO3 25.8 mEq/L (20.0-26.0) 07/19/17 08:45 Base Excess 1.5 mEq/L (-3.0-3.0) 07/19/17 08:45 O2 Saturation 87.0 % (92.0-100.0) L 07/19/17 08:45 Jae Test Positive 07/19/17 08:45 Vent Rate NA 07/19/17 08:45 Inspired O2 50 07/19/17 08:45 Tidal Volume NA 07/19/17 08:45 PEEP NA 07/19/17 08:45 Pressure (ins/psv/peep) NA 07/19/17 08:45 Critical Value LZHANG 07/19/17 08:45 Sodium 134 mEq/L (136-145) L 07/19/17 04:50 Potassium 4.1 mEq/L (3.5-5.1) 07/19/17 04:50 Chloride 97 mEq/L (98-107) L 07/19/17 04:50 Carbon Dioxide 26.3 mEq/L (21.0-31.0) 07/19/17 04:50 Anion Gap 14.8 (7.0-16.0) 07/19/17 04:50 BUN 81 mg/dL (7-25) H* 07/19/17 04:50 Creatinine 3.3 mg/dL (0.6-1.2) H 07/19/17 04:50 Est GFR ( Amer) TNP 07/19/17 04:50 Est GFR (Non-Af Amer) TNP 07/19/17 04:50 BUN/Creatinine Ratio 24.5 07/19/17 04:50 Glucose 119 mg/dL (70-105) H 07/19/17 04:50 POC Glucose 134 MG/DL (70 - 105) H 07/18/17 23:21 Whole Bld Lactic Acid 0.90 mmol/L (0.60-1.99) 07/16/17 15:54 Calcium 8.7 mg/dL (8.6-10.3) 07/19/17 04:50 Magnesium 2.5 mg/dL (1.9-2.7) 07/19/17 04:50 Total Bilirubin 0.4 mg/dL (0.3-1.0) 07/18/17 04:45 Direct Bilirubin 0.16 mg/dL (0.0-0.2) 07/18/17 04:45 AST 40 U/L (13-39) H 07/18/17 04:45 ALT 51 U/L (7-52) 07/18/17 04:45 Alkaline Phosphatase 439 U/L (34-104) H 07/18/17 04:45 Ammonia 39 umol/L (16-53) 07/18/17 04:45 Total Protein 5.9 gm/dL (6.0-8.3) L 07/18/17 04:45 Albumin 2.4 gm/dL (3.7-5.3) L 07/18/17 04:45 Globulin 3.5 gm/dL 07/18/17 04:45 Albumin/Globulin Ratio 0.7 (1.0-1.8) L 07/18/17 04:45 TSH 15.41 uIU/ml (0.34-5.60) H 07/18/17 04:45 Stool Occult Blood POSITIVE (NEGATIVE) 07/17/17 18:00 Random Vancomycin 18.8 ug/mL (5.0-40.0) 07/19/17 04:50 Blood Type O NEGATIVE 07/17/17 09:05 Antibody Screen NEGATIVE 07/17/17 09:05 Crossmatch See Detail 07/17/17 09:05 - Physical Exam Vitals and I&O: Vital Signs Temp 98.9 F 07/19/17 16:00 Pulse 88 07/19/17 16:50 Resp 21 07/19/17 16:00 BP 119/71 07/19/17 16:50 Pulse Ox 97 07/19/17 16:00 Intake & Output 07/18/17 07/19/17 07/19/17 18:59 06:59 18:59 Intake Total 750 650 Balance 750 650 Weight (lbs) 52.163 kg 52.163 kg Intake: Intake, IV Amount 200 50 Levofloxacin 250mg/50mL 50 250 mg In Premix Fluid 1 bag @ 50 mls/hr IV Q24HR@ 0900 [facility] Rx#:[id number] Meropenem 500 mg In 50 50 Sodium Chloride 0.9% 50 ml @ 100 mls/hr IV Q12HR [facility] Rx#:[id number] Tube Feeding 450 450 Other 100 150 Other: # Voids 0 0 # Bowel Movements 3 1 Stool Characteristics Soft Soft Black Black Black Active Medications: Current Medications Acetaminophen (Tylenol 650mg/20.3ml Suspension) 650 mg PO Q6H PRN PRN Reason: Pain (Mild) Stop: 09/16/17 14:08 Last Admin: 07/19/17 10:06 Dose: 650 mg Albuterol/Ipratropium (Duoneb Neb) 3 ml HHN Q2HR PRN PRN Reason: SOB/WHEEZING Stop: 09/14/17 23:45 Last Admin: 07/19/17 00:59 Dose: 3 ml Albuterol/Ipratropium (Duoneb Neb) 3 ml HHN [id number] [facility] Stop: 09/16/17 06:59 Last Admin: 07/19/17 15:19 Dose: 3 ml Amlodipine Besylate (Norvasc) 10 mg GT QPM [facility] Stop: 09/15/17 16:59 Last Admin: 07/19/17 16:50 Dose: Not Given Atorvastatin Calcium (Lipitor) 20 mg GT HS [facility] Stop: 09/15/17 20:59 Last Admin: 07/18/17 20:51 Dose: 20 mg Budesonide (Pulmicort) 0.5 mg HHN BIDRT [facility] Stop: 09/16/17 06:59 Last Admin: 07/19/17 07:49 Dose: 0.5 mg Diphenhydramine HCl (Benadryl) 25 mg GT Q4H PRN PRN Reason: Itching Stop: 09/14/17 23:45 Epoetin Jose (Epogen) 10,000 units IVP MoWeFr [facility] Stop: 09/18/17 13:59 Epoetin Jose (Epogen) 10,000 units IVP 1400 [facility] Stop: 07/19/17 21:00 Escitalopram Oxalate (Lexapro) 10 mg GT DAILY [facility] PRN Reason: Protocol Stop: 09/15/17 08:59 Hydralazine HCl (Apresoline) 20 mg GT Q6H PRN PRN Reason: SBP ABOVE 150 Stop: 09/14/17 23:45 Levofloxacin 250 mg/ (Miscellaneous) 50 mls @ 50 mls/hr IV Q24HR@0900 [facility] Stop: 09/15/17 11:59 Last Admin: 07/19/17 09:09 Dose: 50 mls/hr Meropenem 500 mg/ Sodium (Chloride) 50 mls @ 100 mls/hr IV Q12HR [facility] Stop: 09/15/17 11:59 Last Admin: 07/19/17 10:03 Dose: 50 mls/hr Albumin Human (Albuminar 25%) 25 gm in 100 mls @ 50 mls/hr IV BRETT PRN PRN Reason: BP Support During HD Stop: 07/19/17 23:59 Lactobacillus Rhamnosus (Culturelle) 1 each GT DAILY [facility] Stop: 09/15/17 08:59 Last Admin: 07/19/17 09:08 Dose: 1 each Lactulose (Cephulac) 20 gm GT Q6H PRN PRN Reason: Constipation Stop: 09/14/17 23:45 Lisinopril (Zestril) 40 mg PO DAILY [facility] Stop: 09/15/17 08:59 Last Admin: 07/19/17 09:14 Dose: 40 mg Lorazepam (Ativan) 1 mg IVP Q2HR PRN; Protocol PRN Reason: Agitation Stop: 09/14/17 22:59 Last Admin: 07/19/17 00:38 Dose: 1 mg Metoclopramide HCl (Reglan) 5 mg GT Q6H PRN PRN Reason: Nausea / Vomiting Stop: 09/15/17 00:29 Miscellaneous (Vancomycin Iv Per Pharmacy) 1 ea MC PRN PRN PRN Reason: PROTOCOL Stop: 09/14/17 21:42 Miscellaneous (Vte Chemical Prophylaxis Screen/ Admission) 1 ea MC PRN PRN PRN Reason: PROTOCOL Stop: 09/15/17 14:05 Miscellaneous (Clinical Monitoring) 1 ea MC DAILY PRN PRN Reason: RENAL Stop: 09/15/17 17:32 Miscellaneous (Probiotic Screen) 1 ea MC PRN PRN PRN Reason: PROTOCOL Stop: 09/17/17 14:37 Mupirocin (Bactroban Oint) 1 appl NS Q12HR [facility] Stop: 07/23/17 09:01 Nitroglycerin (Nitrostat) 0.4 mg SL Q5MIN PRN PRN Reason: Chest Pain Stop: 09/14/17 23:45 Nitroglycerin (Transderm-Nitro) 1 patch TD DAILY [facility] Stop: 09/15/17 08:59 Last Admin: 07/19/17 09:56 Dose: 1 patch Pantoprazole Sodium (Protonix) 40 mg GT Q12HR [facility] Stop: 09/15/17 00:14 Last Admin: 07/19/17 09:08 Dose: 40 mg Potassium Chloride (Potassium Chloride Elixir) 20 meq GT DAILY [facility] Stop: 09/16/17 08:59 Last Admin: 07/19/17 09:08 Dose: 20 meq Infectious Disease Assmt/Plan - Problem List Patient Problems: All Active Problems LOW SAO2 AND LETHARGY (Acute) Nutritional Asmnt/Malnutr-PDOC - Dietary Evaluation Malnutrition Findings (Please click <Entered> for more info): Nutritional Asmnt/Malnutrition Start: 07/17/17 12: 34 Text: Status: Complete Freq: Document 07/17/17 12:34 LCALONAG (Rec: 07/17/17 13:13 [facility] Nutritional Asmnt/Malnutrition Patient General Information Nutritional Screening High Risk Diagnosis asp pneumonia, animia, hypokalemia, leukocytosis Pertinent Medical Hx/Surgical Hx HTN, CHF, CVA/TIA, dyslipidemia, PUD/GERD, thyroid disorder, anxiety, depression, PEG, ESRD on dialysis Subjective Information pt seen sleeping in bed during the time of visit. TF [employer] was not running at this time. Spoke with KG Quintero , TF was turn off d/t pt changing, was going to restart now at same rate of 50ml/hr continously. Per RN, pt is tolerated TF well, no residual noted. Current Diet Order/ Nutrition Support Novasource renal 50ml/hr continously, providing 2400kcal, 109g Pertinent Medications Iron, Culturelle, Vancomycin Pertinent Labs 07/17 Na 133L, K 3.7, Cl 96L, BUN 83H, Cr 3.3H, Glu 146H, AST 53H, ALT 66H, Alkaline Phos 494H, Alb 2.5 Nutritional Hx/Data Height 1.47 m Height (Calculated Centimeters) 147.3 Current Weight (lbs) 52.163 kg Weight (Calculated Kilograms) 52.2 Weight (Calculated Grams) 19134.1 [place] Body Weight 90 % [place] Body Weight 124 Body Mass Index (BMI) 24.0 Weight Status Approriate GI Symptoms Usual diet at home [employer] Renal 50ml/hr x 16hr daily with water flush 150ml q6hr, providing 1600kcal , 73g protein Skin Integrity/Comment: intact Estimated Nutritional Goals BEE in Kcals: Using Current wt Calories/Kcals/Kg 30-35 Kcals Calculated 9419-0593 Protein: Using Current wt Protein g/k.2-1.4 monitor renal labs Protein Calculated 63-73 Fluid: ml 9139-1556 Nutritional Problem 1. Problem Problem excessive intake from enteral nutrition Etiology r/t Novasource Renal running at 50m/hr continously Signs/Symptoms: current TF providing 2400kcal and 104g protein which meets 150% of nutritional needs Malnutrition Alert Protein-Calorie Malnutrition N/A Is there a minimum of two criteria No selected? Query Text:Check all the applicable criteria. A minimum of two criteria are recommended for diagnosis of either severe or non-severe malnutrition. Intervention/Recommendation Recommendations by RD Decrease Calorie Intake Comments 1. Notified RN Ingrid that current TF regimen provides excessive nutrition than actual needs. RN will change TF to 35ml/hr x 16hr daily. This provides 800ml total volume, 1600kcal, 73g protein, meeting 100% of nutritional needs. 2. monitor TF rate, tolerance, residual, wt daily, nutrition related labs 3. F/U as high risk in 07/19- 07/20 Expected Outcomes/Goals Expected Outcomes/Goals 1. pt to meet 100% of nutritional needs via nutrition support with tolerance 2. labs to improve, wt to remain stable
--- NOTE | 2017-07-19 18:02 | Consultation ---
DATE OF CONSULTATION: 07/17/2017 INFECTIOUS DISEASE CONSULTATION PRIMARY PHYSICIAN: Dr. Zhong. REASON FOR CONSULTATION: Sepsis. HISTORY OF PRESENT ILLNESS: An 82-year-old female who was brought to the Emergency Room with a complaint of altered mental status. The patient was hypertensive and was brought to the Emergency Room at [facility] where the patient was evaluated by the ER physician, a stat Infectious consultation was called, antibiotics started, and the patient was examined as soon as possible. PAST MEDICAL HISTORY: Hypertension, renal failure on dialysis, hyperlipidemia, vent dependence, tracheostomy, PEG placement, and AV shunt. SOCIAL HISTORY: Nonsmoker. REVIEW OF SYSTEMS: A 14-point review of systems is negative except as above. PHYSICAL EXAMINATION: VITAL SIGNS: An elderly female with the following vital signs: Temperature 98, pulse 74, respirations 18, and blood pressure 120/50. HEENT: Mild pallor, no icterus or plaque. NECK: Supple. LUNGS: Breath sounds bilateral. CARDIOVASCULAR: S1 and S2. ABDOMEN: Soft. Bowel sounds present. No tenderness. LYMPHATIC: No palpable cervical lymph nodes. G-tube is present. LABORATORY DATA: White count is 18,000, hemoglobin is 7.7 grams, and platelets are 238. Chest x-ray shows infiltrate. White count is elevated. DIAGNOSES: Pneumonia; respiratory failure, [id number]; altered mental status; encephalopathy; end-stage renal disease, dialysis; and hypertension. PLAN: The patient was started on meropenem and vancomycin. MRSA screening. Supportive care. Also, Levaquin added. ____ renal failure, renal consult. The patient undergoing dialysis at the time of exam. Rest of the care as ordered in CPOE. Thank you, Dr. Zhong, this consultation. JOB# [id number]
--- NOTE | 2017-07-19 21:54 | Internal Medicine Prog Note ---
Internal Medicine Subjective - Subjective Service Date: 07/19/17 Patient seen and examined:: with staff (SHE OFF VENT,ON TRACH OXYGEN.) Patient is:: non-verbal, non-interactive, in bed Per staff patient has:: no adverse event Internal Medicine Objective - Results Result Diagrams: 07/19/17 04:50 07/19/17 04:50 Recent Labs: Laboratory Last Values WBC 23.3 Th/cmm (4.8-10.8) H* 07/19/17 04:50 RBC 3.31 Mil/cmm (3.80-5.20) L 07/19/17 04:50 Hgb 10.1 gm/dL (12-16) L 07/19/17 04:50 Hct 29.8 % (41.0-60) L D 07/19/17 04:50 MCV 90.0 fl (81-100) 07/19/17 04:50 MCH 30.4 pg (27.0-31.0) 07/19/17 04:50 MCHC Differential 33.8 pg (28.0-36.0) 07/19/17 04:50 RDW 17.1 % (11.5-20.0) 07/19/17 04:50 Plt Count 239 Th/cmm (150-400) 07/19/17 04:50 MPV 7.0 fl 07/19/17 04:50 Neutrophils % GENER[employer] 07/19/17 04:50 Band Neutrophils % 3 % (0-10) 07/19/17 04:50 Lymphocytes % [employer] 07/19/17 04:50 Monocytes % [employer] 07/19/17 04:50 Neutrophils (Manual) 88 % (40-80) H 07/19/17 04:50 Lymphocytes 7 % (20-50) L 07/19/17 04:50 Monocytes 2 % (2-10) 07/19/17 04:50 Eosinophils 0 % (0-5) 07/16/17 15:54 Basophils 0 % (0-3) 07/16/17 15:54 Hypochromia 1+ 07/16/17 15:54 Platelet Estimate ADEQUATE (NORMAL) 07/17/17 04:15 Platelet Morphology NORMAL (NORMAL) 07/17/17 04:15 Anisocytosis 1+ 07/17/17 04:15 RBC Morph Micro Appear ABNORMAL (NORMAL) 07/17/17 04:15 Specimen Source Arterial 07/19/17 08:45 Sample Site Right Radial 07/19/17 08:45 pH 7.34 (7.35-7.45) L 07/19/17 08:45 pCO2 52.0 mmHg (35.0-45.0) H 07/19/17 08:45 pO2 57.0 mmHg (80.0-100.0) L 07/19/17 08:45 HCO3 25.8 mEq/L (20.0-26.0) 07/19/17 08:45 Base Excess 1.5 mEq/L (-3.0-3.0) 07/19/17 08:45 O2 Saturation 87.0 % (92.0-100.0) L 07/19/17 08:45 Jae Test Positive 07/19/17 08:45 Vent Rate NA 07/19/17 08:45 Inspired O2 50 07/19/17 08:45 Tidal Volume NA 07/19/17 08:45 PEEP NA 07/19/17 08:45 Pressure (ins/psv/peep) NA 07/19/17 08:45 Critical Value LZHANG 07/19/17 08:45 Sodium 134 mEq/L (136-145) L 07/19/17 04:50 Potassium 4.1 mEq/L (3.5-5.1) 07/19/17 04:50 Chloride 97 mEq/L (98-107) L 07/19/17 04:50 Carbon Dioxide 26.3 mEq/L (21.0-31.0) 07/19/17 04:50 Anion Gap 14.8 (7.0-16.0) 07/19/17 04:50 BUN 81 mg/dL (7-25) H* 07/19/17 04:50 Creatinine 3.3 mg/dL (0.6-1.2) H 07/19/17 04:50 Est GFR ( Amer) TNP 07/19/17 04:50 Est GFR (Non-Af Amer) TNP 07/19/17 04:50 BUN/Creatinine Ratio 24.5 07/19/17 04:50 Glucose 119 mg/dL (70-105) H 07/19/17 04:50 POC Glucose 134 MG/DL (70 - 105) H 07/18/17 23:21 Whole Bld Lactic Acid 0.90 mmol/L (0.60-1.99) 07/16/17 15:54 Calcium 8.7 mg/dL (8.6-10.3) 07/19/17 04:50 Magnesium 2.5 mg/dL (1.9-2.7) 07/19/17 04:50 Total Bilirubin 0.4 mg/dL (0.3-1.0) 07/18/17 04:45 Direct Bilirubin 0.16 mg/dL (0.0-0.2) 07/18/17 04:45 AST 40 U/L (13-39) H 07/18/17 04:45 ALT 51 U/L (7-52) 07/18/17 04:45 Alkaline Phosphatase 439 U/L (34-104) H 07/18/17 04:45 Ammonia 39 umol/L (16-53) 07/18/17 04:45 Total Protein 5.9 gm/dL (6.0-8.3) L 07/18/17 04:45 Albumin 2.4 gm/dL (3.7-5.3) L 07/18/17 04:45 Globulin 3.5 gm/dL 07/18/17 04:45 Albumin/Globulin Ratio 0.7 (1.0-1.8) L 07/18/17 04:45 TSH 15.41 uIU/ml (0.34-5.60) H 07/18/17 04:45 Stool Occult Blood POSITIVE (NEGATIVE) 07/17/17 18:00 Random Vancomycin 18.8 ug/mL (5.0-40.0) 07/19/17 04:50 Blood Type O NEGATIVE 07/17/17 09:05 Antibody Screen NEGATIVE 07/17/17 09:05 Crossmatch See Detail 07/17/17 09:05 - Physical Exam Vitals and I&O: Vital Signs Temp 97.8 F 07/19/17 18:00 Pulse 100 07/19/17 20:17 Resp 22 07/19/17 19:10 BP 175/79 07/19/17 20:17 Pulse Ox 99 07/19/17 19:10 Intake & Output 07/19/17 07/19/17 07/20/17 06:59 18:59 06:59 Intake Total 650 350 Balance 650 350 Weight (lbs) 52.163 kg 52.163 kg Intake: Intake, IV Amount 50 Meropenem 500 mg In 50 Sodium Chloride 0.9% 50 ml @ 100 mls/hr IV Q12HR [facility] Rx#:[id number] Tube Feeding 450 350 Other 150 Other: # Voids 0 1 # Bowel Movements 1 3 Stool Characteristics Soft Black Black Active Medications: Current Medications Acetaminophen (Tylenol 650mg/20.3ml Suspension) 650 mg PO Q6H PRN PRN Reason: Pain (Mild) Stop: 09/16/17 14:08 Last Admin: 07/19/17 10:06 Dose: 650 mg Albuterol/Ipratropium (Duoneb Neb) 3 ml HHN Q2HR PRN PRN Reason: SOB/WHEEZING Stop: 09/14/17 23:45 Last Admin: 07/19/17 00:59 Dose: 3 ml Albuterol/Ipratropium (Duoneb Neb) 3 ml HHN [id number] [facility] Stop: 09/16/17 06:59 Last Admin: 07/19/17 19:17 Dose: 3 ml Amlodipine Besylate (Norvasc) 10 mg GT QPM [facility] Stop: 09/15/17 16:59 Last Admin: 07/19/17 16:50 Dose: Not Given Atorvastatin Calcium (Lipitor) 20 mg GT HS [facility] Stop: 09/15/17 20:59 Last Admin: 07/18/17 20:51 Dose: 20 mg Budesonide (Pulmicort) 0.5 mg HHN BIDRT [facility] Stop: 09/16/17 06:59 Last Admin: 07/19/17 07:49 Dose: 0.5 mg Diphenhydramine HCl (Benadryl) 25 mg GT Q4H PRN PRN Reason: Itching Stop: 09/14/17 23:45 Epoetin Jose (Epogen) 10,000 units IVP MoWeFr [facility] Stop: 09/18/17 13:59 Escitalopram Oxalate (Lexapro) 10 mg GT DAILY [facility] PRN Reason: Protocol Stop: 09/15/17 08:59 Hydralazine HCl (Apresoline) 20 mg GT Q6H PRN PRN Reason: SBP ABOVE 150 Stop: 09/14/17 23:45 Last Admin: 07/19/17 20:17 Dose: 20 mg Levofloxacin 250 mg/ (Miscellaneous) 50 mls @ 50 mls/hr IV Q24HR@0900 [facility] Stop: 09/15/17 11:59 Last Admin: 07/19/17 09:09 Dose: 50 mls/hr Meropenem 500 mg/ Sodium (Chloride) 50 mls @ 100 mls/hr IV Q12HR [facility] Stop: 09/15/17 11:59 Last Admin: 07/19/17 10:03 Dose: 50 mls/hr Albumin Human (Albuminar 25%) 25 gm in 100 mls @ 50 mls/hr IV BRETT PRN PRN Reason: BP Support During HD Stop: 07/19/17 23:59 Lactobacillus Rhamnosus (Culturelle) 1 each GT DAILY [facility] Stop: 09/15/17 08:59 Last Admin: 07/19/17 09:08 Dose: 1 each Lactulose (Cephulac) 20 gm GT Q6H PRN PRN Reason: Constipation Stop: 09/14/17 23:45 Lisinopril (Zestril) 40 mg PO DAILY [facility] Stop: 09/15/17 08:59 Last Admin: 07/19/17 09:14 Dose: 40 mg Lorazepam (Ativan) 1 mg IVP Q2HR PRN; Protocol PRN Reason: Agitation Stop: 09/14/17 22:59 Last Admin: 07/19/17 20:01 Dose: 1 mg Metoclopramide HCl (Reglan) 5 mg GT Q6H PRN PRN Reason: Nausea / Vomiting Stop: 09/15/17 00:29 Miscellaneous (Vancomycin Iv Per Pharmacy) 1 ea MC PRN PRN PRN Reason: PROTOCOL Stop: 09/14/17 21:42 Miscellaneous (Vte Chemical Prophylaxis Screen/ Admission) 1 ea MC PRN PRN PRN Reason: PROTOCOL Stop: 09/15/17 14:05 Miscellaneous (Clinical Monitoring) 1 ea MC DAILY PRN PRN Reason: RENAL Stop: 09/15/17 17:32 Miscellaneous (Probiotic Screen) 1 ea MC PRN PRN PRN Reason: PROTOCOL Stop: 09/17/17 14:37 Mupirocin (Bactroban Oint) 1 appl NS Q12HR [facility] Stop: 07/23/17 09:01 Nitroglycerin (Nitrostat) 0.4 mg SL Q5MIN PRN PRN Reason: Chest Pain Stop: 09/14/17 23:45 Nitroglycerin (Transderm-Nitro) 1 patch TD DAILY [facility] Stop: 09/15/17 08:59 Last Admin: 07/19/17 09:56 Dose: 1 patch Pantoprazole Sodium (Protonix) 40 mg GT Q12HR [facility] Stop: 09/15/17 00:14 Last Admin: 07/19/17 09:08 Dose: 40 mg Potassium Chloride (Potassium Chloride Elixir) 20 meq GT DAILY [facility] Stop: 09/16/17 08:59 Last Admin: 07/19/17 09:08 Dose: 20 meq General: demented HEENT: NC/AT, PERRLA, EOMI, anicteric sclerae, throat clear Neck: Supple, No JVD, No thyromegaly, +2 carotid pulse wo bruit, No LAD Lungs: CTAB Cardiovascular: RRR, Normal S1, Normal S2, without murmur Abdomen: soft, non-tender, non-distended Extremities: clear Neurological: bedbound Internal Medicine Assmt/Plan - Assessment Assessment: 1.SEPSIS. 2.ANEMIA. 3.RESPIRATORY FAILURE. 4.ESRF. 5.LOWER GI BLEEDING. - Plan Plan: CONTINUE ON CURRENT MEDICATION AND DIET. Nutritional Asmnt/Malnutr-PDOC - Dietary Evaluation Malnutrition Findings (Please click <Entered> for more info): Nutritional Asmnt/Malnutrition Start: 07/17/17 12: 34 Text: Status: Complete Freq: Document 07/17/17 12:34 LCHENG (Rec: 07/17/17 13:13 LCALONAG [email or web address]) Nutritional Asmnt/Malnutrition Patient General Information Nutritional Screening High Risk Diagnosis asp pneumonia, animia, hypokalemia, leukocytosis Pertinent Medical Hx/Surgical Hx HTN, CHF, CVA/TIA, dyslipidemia, PUD/GERD, thyroid disorder, anxiety, depression, PEG, ESRD on dialysis Subjective Information pt seen sleeping in bed during the time of visit. TF [id number] was not running at this time. Spoke with KG Quintero , TF was turn off d/t pt changing, was going to restart now at same rate of 50ml/hr continously. Per RN, pt is tolerated TF well, no residual noted. Current Diet Order/ Nutrition Support Novasource renal 50ml/hr continously, providing 2400kcal, 109g Pertinent Medications Iron, Culturelle, Vancomycin Pertinent Labs 07/17 Na 133L, K 3.7, Cl 96L, BUN 83H, Cr 3.3H, Glu 146H, AST 53H, ALT 66H, Alkaline Phos 494H, Alb 2.5 Nutritional Hx/Data Height 1.47 m Height (Calculated Centimeters) 147.3 Current Weight (lbs) 52.163 kg Weight (Calculated Kilograms) 52.2 Weight (Calculated Grams) 06348.1 [place] Body Weight 90 % [place] Body Weight 124 Body Mass Index (BMI) 24.0 Weight Status Approriate GI Symptoms Usual diet at home [employer] Renal 50ml/hr x 16hr daily with water flush 150ml q6hr, providing 1600kcal , 73g protein Skin Integrity/Comment: intact Estimated Nutritional Goals BEE in Kcals: Using Current wt Calories/Kcals/Kg 30-35 Kcals Calculated 7577-8472 Protein: Using Current wt Protein g/k.2-1.4 monitor renal labs Protein Calculated 63-73 Fluid: ml 1073-7908 Nutritional Problem 1. Problem Problem excessive intake from enteral nutrition Etiology r/t [employer] Renal running at 50m/hr continously Signs/Symptoms: current TF providing 2400kcal and 104g protein which meets 150% of nutritional needs Malnutrition Alert Protein-Calorie Malnutrition N/A Is there a minimum of two criteria No selected? Query Text:Check all the applicable criteria. A minimum of two criteria are recommended for diagnosis of either severe or non-severe malnutrition. Intervention/Recommendation Recommendations by RD Decrease Calorie Intake Comments 1. Notified KG Quintero that current TF regimen provides excessive nutrition than actual needs. RN will change TF to 35ml/hr x 16hr daily. This provides 800ml total volume, 1600kcal, 73g protein, meeting 100% of nutritional needs. 2. monitor TF rate, tolerance, residual, wt daily, nutrition related labs 3. F/U as high risk in 07/19- 07/20 Expected Outcomes/Goals Expected Outcomes/Goals 1. pt to meet 100% of nutritional needs via nutrition support with tolerance 2. labs to improve, wt to remain stable
--- NOTE | 2017-07-19 22:07 | Progress Notes ---
DATE: 07/19/2017 PROBLEM LIST: 1. Respiratory failure. 2. Congestive heart failure, fluid overload. 3. Renal failure, on hemodialysis. 4. Tracheostomy. 5. Possibly line sepsis. SYMPTOMS: The patient barely opens eyes, but no other meaningful communication could be done and no respiratory distress. Currently, ____ on 60% of oxygen and saturation is in mid 90s. PHYSICAL EXAMINATION: VITAL SIGNS: Recorded vitals essentially as above and clinical finding. NECK: Veins not visualized. CHEST: Shows diminished air entry with occasional rhonchi. HEART: Regular. ABDOMEN: Soft, nontender. LABORATORY DATA: The patient's nares shows MRSA isolation and also blood culture shows Corynebacterium striatum on 2 occasions, different site of the blood culture. Other laboratory studies: White count is 23,000 and ABG shows pCO2 of 52, pO2 57, pH of 7.34 and BUN is 81, creatinine is 3.3. ASSESSMENT: 1. The patient is clinically stable with multisystem issue, respiratory failure, possibly tracheobronchitis. 2. Fluid overload. 3. Line sepsis. 4. History of previous encephalopathy. 5. Previous tracheostomy. PLANS AND SUGGESTIONS: We will agree with changing the dialysis catheter. We will continue rest of other treatment and see how she does in the next 24-48 hours and go from there. JOB# [id number]
[2017-07-19] MEDS: Atorvastatin Calcium 10 MG TAB GT SCH (22:16)
[2017-07-20 06:17] LABS: HEMATOCRIT 26.9 % (41.0-60); HEMOGLOBIN 8.8 gm/dL (12-16); MEAN CELL VOLUME 90.4 fl (81-100); MEAN CORPUSCULAR HEMOGLOBIN 29.4 pg (27.0-31.0); MEAN CORPUSCULAR HGB CONC 32.5 pg (28.0-36.0); MEAN PLATELET VOLUME 6.8 fl; PLATELET COUNT 228 Th/cmm (150-400); RED BLOOD COUNT 2.98 Mil/cmm (3.80-5.20); RED CELL DISTRIBUTION WIDTH 17.1 % (11.5-20.0)
[2017-07-20 06:37] LABS: ANION GAP 10.8 (7.0-16.0); BUN - UREA NITROGEN 49 mg/dL (7-25); BUN/CREATININE RATIO 19.6; CALCIUM SERUM 8.6 mg/dL (8.6-10.3); CHLORIDE 94 mEq/L (98-107); CREATININE - SERUM 2.5 mg/dL (0.6-1.2); GLUCOSE 91 mg/dL (70-105); INR 1.17 (0.5-1.4); POTASSIUM SERUM 3.8 mEq/L (3.5-5.1); PROTHROMBIN TIME (TEST) 12.3 SECONDS (9.5-11.5); SODIUM SERUM 131 mEq/L (136-145)
[2017-07-20 06:43] LABS: WHITE BLOOD COUNT 17.8 Th/cmm (4.8-10.8)
[2017-07-20] MEDS: Budesonide 0.5 Mg/2 mL Ud HHN SCH (06:53)
[2017-07-20] MEDS: Albuterol/Ipratropium Neb 3 ML AERS HHN SCH ×3 (06:53→14:27)
[2017-07-20 07:31] LABS: BAND NEUTROPHILE 2 % (0-10); NEUTROPHILS 85 % (40-80); TOTAL CELLS COUNTED 100
[2017-07-20 07:32] LABS: PLATELET ESTIMATE ADEQUATE (NORMAL)
[2017-07-20] MEDS: Meropenem 500 MG in Sodium Chloride 0.9% 50 ML IV SCH (08:43)
[2017-07-20] MEDS: Levofloxacin 250mg/50mL 250 MG in Premix Fluid 1 BAG IV SCH (08:46)
[2017-07-20] MEDS: Pantoprazole 40 mg/Packet GT SCH (08:52)
[2017-07-20] MEDS: Lactobacillus Rhamnosus 10 Billion CFU Capsule GT SCH (08:52)
[2017-07-20 09:04] LABS: BE(B) 5.8 mEq/L (-3.0-3.0); HCO3 29.4 mEq/L (20.0-26.0); pH 7.35 (7.35-7.45)
[2017-07-20 09:05] LABS: ABG SOURCE Arterial; CRITICAL VALUES REPORTED BY SH; FIO2 50
[2017-07-20] MEDS: Potassium Chloride Elixir 20 mEq /15 mL UDC GT SCH (09:11)
[2017-07-20] MEDS: Nitroglycerin 0.2 mg/hr Tdm TD SCH (09:24)
--- NOTE | 2017-07-20 09:49 | Diagnostic Imaging Report ---
Portable chest x-ray HISTORY: Shortness of breath Compared with the prior exam of July 18, 2017, evidence of bilateral pleural effusions. Somewhat more focal density seen in the left lower hemithorax with obscuration of the left hemidiaphragm. Underlying consolidation and/or atelectasis cannot be excluded. The heart remains enlarged. IMPRESSION: 1. Little change in the cardiopulmonary status as noted above.
[2017-07-20] MEDS ORDERED: Lidocaine 2% Gel 5 mL TP ONE (12:45)
--- NOTE | 2017-07-20 13:14 | General Progress Note ---
Subjective - Review of Systems Service Date: 07/20/17 Subjective: drowsy Objective - Results Result Diagrams: 07/20/17 05:45 07/20/17 05:45 Recent Labs: Laboratory Last Values WBC 17.8 Th/cmm (4.8-10.8) H D 07/20/17 05:45 RBC 2.98 Mil/cmm (3.80-5.20) L 07/20/17 05:45 Hgb 8.8 gm/dL (12-16) L 07/20/17 05:45 Hct 26.9 % (41.0-60) L 07/20/17 05:45 MCV 90.4 fl (81-100) 07/20/17 05:45 MCH 29.4 pg (27.0-31.0) 07/20/17 05:45 MCHC Differential 32.5 pg (28.0-36.0) 07/20/17 05:45 RDW 17.1 % (11.5-20.0) 07/20/17 05:45 Plt Count 228 Th/cmm (150-400) 07/20/17 05:45 MPV 6.8 fl 07/20/17 05:45 Neutrophils % [employer] 07/19/17 04:50 Band Neutrophils % 2 % (0-10) 07/20/17 05:45 Lymphocytes % [employer] 07/19/17 04:50 Monocytes % [employer] 07/19/17 04:50 Neutrophils (Manual) 85 % (40-80) H 07/20/17 05:45 Lymphocytes 5 % (20-50) L 07/20/17 05:45 Monocytes 8 % (2-10) 07/20/17 05:45 Eosinophils 0 % (0-5) 07/16/17 15:54 Basophils 0 % (0-3) 07/16/17 15:54 Hypochromia 1+ 07/16/17 15:54 Platelet Estimate ADEQUATE (NORMAL) 07/20/17 05:45 Platelet Morphology NORMAL (NORMAL) 07/17/17 04:15 Anisocytosis 1+ 07/17/17 04:15 RBC Morph Micro Appear ABNORMAL (NORMAL) 07/17/17 04:15 PT 12.3 SECONDS (9.5-11.5) H 07/20/17 05:45 INR 1.17 (0.5-1.4) 07/20/17 05:45 PTT (Actin FS) 43.9 SECONDS (26.0-38.0) H 07/20/17 05:45 Specimen Source Arterial 07/20/17 09:00 Sample Site RB 07/20/17 09:00 pH 7.35 (7.35-7.45) 07/20/17 09:00 pCO2 60.0 mmHg (35.0-45.0) H* 07/20/17 09:00 pO2 88.0 mmHg (80.0-100.0) 07/20/17 09:00 HCO3 29.4 mEq/L (20.0-26.0) H 07/20/17 09:00 Base Excess 5.8 mEq/L (-3.0-3.0) H 07/20/17 09:00 O2 Saturation 96.0 % (92.0-100.0) 07/20/17 09:00 Jae Test NA 07/20/17 09:00 Vent Rate NA 07/20/17 09:00 Inspired O2 50 07/20/17 09:00 Tidal Volume NA 07/20/17 09:00 PEEP NA 07/20/17 09:00 Pressure (ins/psv/peep) NA 07/20/17 09:00 Critical Value SH 07/20/17 09:00 Sodium 131 mEq/L (136-145) L 07/20/17 05:45 Potassium 3.8 mEq/L (3.5-5.1) 07/20/17 05:45 Chloride 94 mEq/L (98-107) L 07/20/17 05:45 Carbon Dioxide 30.0 mEq/L (21.0-31.0) 07/20/17 05:45 Anion Gap 10.8 (7.0-16.0) 07/20/17 05:45 BUN 49 mg/dL (7-25) H 07/20/17 05:45 Creatinine 2.5 mg/dL (0.6-1.2) H 07/20/17 05:45 Est GFR ( Amer) TNP 07/20/17 05:45 Est GFR (Non-Af Amer) TNP 07/20/17 05:45 BUN/Creatinine Ratio 19.6 07/20/17 05:45 Glucose 91 mg/dL (70-105) 07/20/17 05:45 POC Glucose 89 MG/DL (70 - 105) 07/20/17 12:33 Whole Bld Lactic Acid 0.90 mmol/L (0.60-1.99) 07/16/17 15:54 Calcium 8.6 mg/dL (8.6-10.3) 07/20/17 05:45 Magnesium 2.5 mg/dL (1.9-2.7) 07/19/17 04:50 Total Bilirubin 0.4 mg/dL (0.3-1.0) 07/18/17 04:45 Direct Bilirubin 0.16 mg/dL (0.0-0.2) 07/18/17 04:45 AST 40 U/L (13-39) H 07/18/17 04:45 ALT 51 U/L (7-52) 07/18/17 04:45 Alkaline Phosphatase 439 U/L (34-104) H 07/18/17 04:45 Ammonia 39 umol/L (16-53) 07/18/17 04:45 Total Protein 5.9 gm/dL (6.0-8.3) L 07/18/17 04:45 Albumin 2.4 gm/dL (3.7-5.3) L 07/18/17 04:45 Globulin 3.5 gm/dL 07/18/17 04:45 Albumin/Globulin Ratio 0.7 (1.0-1.8) L 07/18/17 04:45 TSH 15.41 uIU/ml (0.34-5.60) H 07/18/17 04:45 Stool Occult Blood POSITIVE (NEGATIVE) 07/17/17 18:00 Random Vancomycin 26.3 ug/mL (5.0-40.0) 07/20/17 05:45 Blood Type O NEGATIVE 07/17/17 09:05 Antibody Screen NEGATIVE 07/17/17 09:05 Crossmatch See Detail 07/17/17 09:05 - Physical Exam Vitals and I&O: Vital Signs Temp 98 F 07/20/17 12:00 Pulse 98 07/20/17 12:00 Resp 18 07/20/17 12:00 BP 148/88 07/20/17 12:00 Pulse Ox 97 07/20/17 10:50 Intake & Output 07/19/17 07/20/17 07/20/17 18:59 06:59 18:59 Intake Total 450 200 Balance 450 200 Weight (lbs) 52.163 kg 49.714 kg Intake: Intake, IV Amount 100 50 Levofloxacin 250mg/50mL 50 250 mg In Premix Fluid 1 bag @ 50 mls/hr IV Q24HR@ 0900 [facility] Rx#:[id number] Meropenem 500 mg In 50 50 Sodium Chloride 0.9% 50 ml @ 100 mls/hr IV Q12HR [facility] Rx#:[id number] Tube Feeding 350 150 Other: # Voids 1 # Bowel Movements 3 2 Stool Characteristics Black Liquid Black Active Medications: Current Medications Acetaminophen (Tylenol 650mg/20.3ml Suspension) 650 mg PO Q6H PRN PRN Reason: Pain (Mild) Stop: 09/16/17 14:08 Last Admin: 07/19/17 10:06 Dose: 650 mg Albuterol/Ipratropium (Duoneb Neb) 3 ml HHN Q2HR PRN PRN Reason: SOB/WHEEZING Stop: 09/14/17 23:45 Last Admin: 07/19/17 23:38 Dose: 3 ml Albuterol/Ipratropium (Duoneb Neb) 3 ml HHN [id number] [facility] Stop: 09/16/17 06:59 Last Admin: 07/20/17 10:46 Dose: 3 ml Amlodipine Besylate (Norvasc) 10 mg GT QPM [facility] Stop: 09/15/17 16:59 Last Admin: 07/19/17 16:50 Dose: Not Given Atorvastatin Calcium (Lipitor) 20 mg GT HS [facility] Stop: 09/15/17 20:59 Last Admin: 07/19/17 22:16 Dose: 20 mg Budesonide (Pulmicort) 0.5 mg HHN BIDRT [facility] Stop: 09/16/17 06:59 Last Admin: 07/20/17 06:53 Dose: 0.5 mg Diphenhydramine HCl (Benadryl) 25 mg GT Q4H PRN PRN Reason: Itching Stop: 09/14/17 23:45 Epoetin Jose (Epogen) 10,000 units IVP MoWeFr [facility] Stop: 09/18/17 13:59 Escitalopram Oxalate (Lexapro) 10 mg GT DAILY [facility] PRN Reason: Protocol Stop: 09/15/17 08:59 Last Admin: 07/20/17 09:10 Dose: Not Given Hydralazine HCl (Apresoline) 20 mg GT Q6H PRN PRN Reason: SBP ABOVE 150 Stop: 09/14/17 23:45 Last Admin: 07/19/17 20:17 Dose: 20 mg Levofloxacin 250 mg/ (Miscellaneous) 50 mls @ 50 mls/hr IV Q24HR@0900 [facility] Stop: 09/15/17 11:59 Last Admin: 07/20/17 08:46 Dose: 50 mls/hr Meropenem 500 mg/ Sodium (Chloride) 50 mls @ 100 mls/hr IV Q12HR [facility] Stop: 09/15/17 11:59 Last Admin: 07/20/17 08:43 Dose: 50 mls/hr Lactobacillus Rhamnosus (Culturelle) 1 each GT DAILY [facility] Stop: 09/15/17 08:59 Last Admin: 07/20/17 08:52 Dose: Not Given Lactulose (Cephulac) 20 gm GT Q6H PRN PRN Reason: Constipation Stop: 09/14/17 23:45 Lisinopril (Zestril) 40 mg PO DAILY [facility] Stop: 09/15/17 08:59 Last Admin: 07/20/17 08:52 Dose: Not Given Lorazepam (Ativan) 1 mg IVP Q2HR PRN; Protocol PRN Reason: Agitation Stop: 09/14/17 22:59 Last Admin: 07/20/17 05:30 Dose: 1 mg Metoclopramide HCl (Reglan) 5 mg GT Q6H PRN PRN Reason: Nausea / Vomiting Stop: 09/15/17 00:29 Miscellaneous (Vancomycin Iv Per Pharmacy) 1 ea [facility] PRN PRN PRN Reason: PROTOCOL Stop: 09/14/17 21:42 Miscellaneous (Vte Chemical Prophylaxis Screen/ Admission) 1 ea [facility] PRN PRN PRN Reason: PROTOCOL Stop: 09/15/17 14:05 Miscellaneous (Clinical Monitoring) 1 ea [facility] DAILY PRN PRN Reason: RENAL Stop: 09/15/17 17:32 Miscellaneous (Probiotic Screen) 1 ea [facility] PRN PRN PRN Reason: PROTOCOL Stop: 09/17/17 14:37 Mupirocin (Bactroban Oint) 1 appl NS Q12HR [facility] Stop: 07/23/17 09:01 Last Admin: 07/20/17 08:54 Dose: Not Given Nitroglycerin (Nitrostat) 0.4 mg SL Q5MIN PRN PRN Reason: Chest Pain Stop: 09/14/17 23:45 Nitroglycerin (Transderm-Nitro) 1 patch TD DAILY [facility] Stop: 09/15/17 08:59 Last Admin: 07/20/17 09:24 Dose: 1 patch Pantoprazole Sodium (Protonix) 40 mg GT Q12HR [facility] Stop: 09/15/17 00:14 Last Admin: 07/20/17 08:52 Dose: Not Given Potassium Chloride (Potassium Chloride Elixir) 20 meq GT DAILY [facility] Stop: 09/16/17 08:59 Last Admin: 07/20/17 09:11 Dose: Not Given General: Mild distress HEENT: Atraumatic, PERRLA, EOMI, Mucous membr. moist/pink Neck: Supple, +2 carotid pulse wo bruit Cardiovascular: Regular rate, Normal S1, Normal S2 Lungs: Other (rhonchi, congestion) Abdomen: Bowel sounds, Soft Extremities: no Edema Neurological: Sensation intact Skin: no Rash Psych/Mental Status: Mood NL Assessment/Plan - Problem List Patient Problems: All Active Problems LOW SAO2 AND LETHARGY (Acute) - Assessment Assessment: ESRD on HD ALOC Resp failure Acute liver failure Severe malnutrition Dyslipidemia Anemia of CD Corynebacterium septiciemia - Plan Plan: Lab - Result Diagrams 07/18/17 04:45 07/18/17 04:45 Current Medications Acetaminophen (Tylenol 650mg/20.3ml Suspension) 650 mg PO Q6H PRN PRN Reason: Pain (Mild) Stop: 09/16/17 14:08 Albuterol/Ipratropium (Duoneb Neb) 3 ml HHN Q2HR PRN PRN Reason: SOB/WHEEZING Stop: 09/14/17 23:45 Last Admin: 07/17/17 02:50 Dose: 3 ml Albuterol/Ipratropium (Duoneb Neb) 3 ml HHN [id number] [facility] Stop: 09/16/17 06:59 Last Admin: 07/18/17 11:09 Dose: 3 ml Amlodipine Besylate (Norvasc) 10 mg GT QPM [facility] Stop: 09/15/17 16:59 Last Admin: 07/17/17 17:00 Dose: Not Given Atorvastatin Calcium (Lipitor) 20 mg GT HS [facility] Stop: 09/15/17 20:59 Last Admin: 07/17/17 20:16 Dose: 20 mg Budesonide (Pulmicort) 0.5 mg HHN BIDRT [facility] Stop: 09/16/17 06:59 Last Admin: 07/18/17 07:44 Dose: 0.5 mg Diphenhydramine HCl (Benadryl) 25 mg GT Q4H PRN PRN Reason: Itching Stop: 09/14/17 23:45 Escitalopram Oxalate (Lexapro) 10 mg GT DAILY [facility] PRN Reason: Protocol Stop: 09/15/17 08:59 Ferrous Sulfate (Iron) 300 mg GT Q12H [facility] Stop: 09/15/17 07:29 Last Admin: 07/18/17 06:36 Dose: 300 mg Heparin Sodium (Porcine) (Heparin) 2,000 units HD UD [facility] Stop: 07/19/17 00:00 Last Admin: 07/18/17 08:11 Dose: Not Given Hydralazine HCl (Apresoline) 20 mg GT Q6H PRN PRN Reason: SBP ABOVE 150 Stop: 09/14/17 23:45 Levofloxacin 250 mg/ (Miscellaneous) 50 mls @ 50 mls/hr IV Q24HR@0900 [facility] Stop: 09/15/17 11:59 Last Infusion: 07/18/17 10:40 Dose: Infused Meropenem 500 mg/ Sodium (Chloride) 50 mls @ 100 mls/hr IV Q12HR [facility] Stop: 09/15/17 11:59 Last Infusion: 07/18/17 09:05 Dose: Infused Albumin Human (Albuminar 25%) 25 gm in 100 mls @ 50 mls/hr IV PRN PRN PRN Reason: BP Support During HD Lactobacillus Rhamnosus (Culturelle) 1 each GT DAILY [facility] Stop: 09/15/17 08:59 Last Admin: 07/18/17 08:29 Dose: 1 each Lactulose (Cephulac) 20 gm GT Q6H PRN PRN Reason: Constipation Stop: 09/14/17 23:45 Lisinopril (Zestril) 40 mg PO DAILY [facility] Stop: 09/15/17 08:59 Last Admin: 07/18/17 08:33 Dose: 40 mg Lorazepam (Ativan) 1 mg IVP Q2HR PRN; Protocol PRN Reason: Agitation Stop: 09/14/17 22:59 Last Admin: 07/18/17 03:05 Dose: 1 mg Metoclopramide HCl (Reglan) 5 mg GT Q6H PRN PRN Reason: Nausea / Vomiting Stop: 09/15/17 00:29 Miscellaneous (Vancomycin Iv Per Pharmacy) 1 ea PRN PRN PRN Reason: PROTOCOL Stop: 09/14/17 21:42 Miscellaneous (Darbepoetin Jose In Polysorbat [Aranesp]) 0.1 mg IJ QWEEK 0730 [facility] Stop: 09/14/17 23:44 Miscellaneous (Vte Chemical Prophylaxis Screen/ Admission) 1 ea PRN PRN PRN Reason: PROTOCOL Stop: 09/15/17 14:05 Miscellaneous (Clinical Monitoring) 1 [facility] DAILY PRN PRN Reason: RENAL Stop: 09/15/17 17:32 Mupirocin (Bactroban Oint) 1 appl NS BID [facility] Stop: 07/23/17 09:01 Nitroglycerin (Nitrostat) 0.4 mg SL Q5MIN PRN PRN Reason: Chest Pain Stop: 09/14/17 23:45 Nitroglycerin (Transderm-Nitro) 1 patch TD DAILY [facility] Stop: 09/15/17 08:59 Last Admin: 07/18/17 08:37 Dose: 1 patch Pantoprazole Sodium (Protonix) 40 mg GT Q12HR [facility] Stop: 09/15/17 00:14 Last Admin: 07/18/17 08:29 Dose: 40 mg Potassium Chloride (Potassium Chloride Elixir) 20 meq GT DAILY [facility] Stop: 09/16/17 08:59 Last Admin: 07/18/17 08:29 Dose: 20 meq Lab - Result Diagrams 07/20/17 05:45 07/20/17 05:45 CXR revealed increased infiltrates, congestion schedule for HD in am replace K, BC x 2 grew C. striatum Left AVF still not mature to use Remove Perma cath & switch to [place] Nutritional Asmnt/Malnutr-PDOC - Dietary Evaluation Malnutrition Findings (Please click <Entered> for more info): Nutritional Asmnt/Malnutrition Start: 07/17/17 12: 34 Text: Status: Complete Freq: Document 07/17/17 12:34 NATILEVI (Rec: 07/17/17 13:13 MAI [id number]) Nutritional Asmnt/Malnutrition Patient General Information Nutritional Screening High Risk Diagnosis asp pneumonia, animia, hypokalemia, leukocytosis Pertinent Medical Hx/Surgical Hx HTN, CHF, CVA/TIA, dyslipidemia, PUD/GERD, thyroid disorder, anxiety, depression, PEG, ESRD on dialysis Subjective Information pt seen sleeping in bed during the time of visit. TF [employer] was not running at this time. Spoke with KG Quintero , TF was turn off d/t pt changing, was going to restart now at same rate of 50ml/hr continously. Per RN, pt is tolerated TF well, no residual noted. Current Diet Order/ Nutrition Support Novasource renal 50ml/hr continously, providing 2400kcal, 109g Pertinent Medications Iron, Culturelle, Vancomycin Pertinent Labs 07/17 Na 133L, K 3.7, Cl 96L, BUN 83H, Cr 3.3H, Glu 146H, AST 53H, ALT 66H, Alkaline Phos 494H, Alb 2.5 Nutritional Hx/Data Height 1.47 m Height (Calculated Centimeters) 147.3 Current Weight (lbs) 52.163 kg Weight (Calculated Kilograms) 52.2 Weight (Calculated Grams) 57547.1 [place] Body Weight 90 % [place] Body Weight 124 Body Mass Index (BMI) 24.0 Weight Status Approriate GI Symptoms Usual diet at home Novasource Renal 50ml/hr x 16hr daily with water flush 150ml q6hr, providing 1600kcal , 73g protein Skin Integrity/Comment: intact Estimated Nutritional Goals BEE in Kcals: Using Current wt Calories/Kcals/Kg 30-35 Kcals Calculated 1135-2350 Protein: Using Current wt Protein g/k.2-1.4 monitor renal labs Protein Calculated 63-73 Fluid: ml [id number] Nutritional Problem 1. Problem Problem excessive intake from enteral nutrition Etiology r/t Novasource Renal running at 50m/hr continously Signs/Symptoms: current TF providing 2400kcal and 104g protein which meets 150% of nutritional needs Malnutrition Alert Protein-Calorie Malnutrition N/A Is there a minimum of two criteria No selected? Query Text:Check all the applicable criteria. A minimum of two criteria are recommended for diagnosis of either severe or non-severe malnutrition. Intervention/Recommendation Recommendations by RD Decrease Calorie Intake Comments 1. Notified RN Ingrid that current TF regimen provides excessive nutrition than actual needs. RN will change TF to 35ml/hr x 16hr daily. This provides 800ml total volume, 1600kcal, 73g protein, meeting 100% of nutritional needs. 2. monitor TF rate, tolerance, residual, wt daily, nutrition related labs 3. F/U as high risk in 07/19- 07/20 Expected Outcomes/Goals Expected Outcomes/Goals 1. pt to meet 100% of nutritional needs via nutrition support with tolerance 2. labs to improve, wt to remain stable
[2017-07-20] MEDS ORDERED: Triple Antibiotic 0.94 gm Pkt TP ONE (13:39)
[2017-07-20] MEDS ORDERED: Epoetin Alfa 20000 Units/mL Vial IVP SCH (14:00)
--- NOTE | 2017-07-20 14:59 | Operative Report ---
DATE OF SURGERY: 07/20/2017 PREOPERATIVE DIAGNOSES: 1. Septicemia. 2. End-stage renal disease. 3. Respiratory failure via trach and vent support. POSTOPERATIVE DIAGNOSES: 1. Septicemia. 2. End-stage renal disease. 3. Respiratory failure via trach and vent support. OPERATION DONE: 1. Removal of Perm-A-Cath, right internal jugular vein. 2. Culture and sensitivity of catheter tip. PROCEDURE: The patient was given local anesthesia at the exit site of the catheter. Scissors were then used to excise the adhesion of the cuff from the subcutaneous tissues. Pressure was placed in the neck. Following removal of the catheter, the tip was placed in a sterile cup for culture and sensitivity. The patient tolerated the procedure well. [facility]# [id number]
[2017-07-20] MEDS ORDERED: Albumin 25% 12.5gm/50mL 25 GM/100 ML BTL IV ONE (16:30)
--- NOTE | 2017-07-20 19:58 | Consultation ---
DATE OF CONSULTATION: 07/20/2017 INPATIENT GASTROINTESTINAL PROCEDURE NAME OF PROCEDURE: EGD with biopsy. REFERRING PHYSICIAN: Dr. Zhong. REASON FOR PROCEDURE: Anemia, melena. CONSENT: Risks, benefits, alternatives, nature, indication, possible outcomes were discussed. Mentioned bleeding, infection, perforation, , disability, cardiopulmonary distress and arrest, missed lesion and cancers, need for surgery. The patient is agreeing and constitution party provided informed consent. PREOPERATIVE DIAGNOSES: Anemia, melena. POSTOPERATIVE DIAGNOSIS: Gastritis, endoclips seen in the stomach body and PEG tube bumper type seen in the stomach. Medication provided by anesthesiologist. PROCEDURE: The patient was placed on her left side. Upper endoscope was advanced from the mouth to second portion of duodenum. Scope brought back in the stomach. Retroflexion view of fundus, cardia, lesser curvature, small hiatal hernia. Scope was straightened and slowly withdrawn through esophagus and removed. COMPLICATIONS: None. FINDINGS: 1. GE junction at 39 cm with a normal appearing esophagus. 2. Mild gastritis, status post biopsy. 3. Endoclip seen in the body of the stomach, not actively bleeding. 4. G-tube, PEG bumper was seen. 5. Normal duodenum. RECOMMENDATIONS: 1. Follow up on biopsy. 2. Follow H and H. 3. Provide the patient with a proton pump inhibitor. 4. Consider colonoscopy if there are any signs of GI bleeding. Thank you for allowing me to participate. Please call me if any questions. JOB# [id number]
--- NOTE | 2017-07-20 22:45 | Progress Notes ---
DATE: 07/20/2017 PROBLEM LIST: 1. Hypoxemic respiratory failure. 2. Line sepsis. 3. Persistent haziness fluid overload shows on the right side and right side previous tracheostomy, previous history of CVA. SYMPTOMS: None, noncommunicative, not in any acute distress. PHYSICAL EXAMINATION: VITAL SIGNS: Temperature is 98, blood pressure 148/88, saturation 90% on 50% of oxygen. NECK: Veins not visualized. CHEST: Shows diminished air entry with occasional rhonchi. HEART: Irregular. LABORATORY DATA: The patient's white count is 17,000. ABG shows compensated respiratory acidemia on 50% of oxygen. ASSESSMENT: The patient clinically slightly better oxygenation with bilateral effusion with fluid overload with acute on chronic respiratory failure. PLANS AND SUGGESTIONS: We will decrease FIO2. Continue rest of the treatment and need to have aggressive dialysis and go from there. JOB# [id number]
--- NOTE | 2017-07-21 14:56 | Pathology Report ---
[id number] Collection Date: 07/20/2017 Surgeon: Dr. Bill Moore Specimen Description: Antrum biopsy Gross Description: Received in formalin is a single fragment of rai soft tissue measuring 0.2 cm in greatest dimension. Totally submitted in one cassette. Microscopic Description: The histologic sections show gastric mucosa with mild chronic inflammation present consisting of lymphocytes and plasma cells. The Giemsa stain shows no evidence for Helicobacter pylori. Diagnosis: 1. Mild chronic gastritis, antrum biopsy. 2. The Giemsa stain is negative for Helicobacter pylori. [facility]# [id number]
[2017-07-21] MEDS ORDERED: Albumin 25% 12.5gm/50mL 25 GM/100 ML BTL IV ONE (18:30)
== END 2017-07-20 20:10 | DRG 314 ==
LOC: ER 15:08 → ICU 20:23 → MSI 07-19 18:09 → TELE 07-19 21:30
PROVIDERS: ADMIT Family Medicine; ATTEND Family Medicine
PROC: 05PY33Z Removal of Infusion Device from Upper Vein, Percutaneous Approach (ICD-10-PCS; 2017-07-16)
PROC: 30233N1 Transfusion of Nonautologous Red Blood Cells into Peripheral Vein, Percutaneous Approach (ICD-10-PCS; principal; 2017-07-17)
PROC: 5A1D70Z Performance of Urinary Filtration, Intermittent, Less than 6 Hours Per Day (ICD-10-PCS; 2017-07-17)
PROC: 5A1D70Z Performance of Urinary Filtration, Intermittent, Less than 6 Hours Per Day (ICD-10-PCS; 2017-07-19)
PROC: 0DB68ZX Excision of Stomach, Via Natural or Artificial Opening Endoscopic, Diagnostic (ICD-10-PCS; 2017-07-20)
DX: T80.211A Bloodstream infection due to central venous catheter, initial encounter (principal); J69.0 Pneumonitis due to inhalation of food and vomit; A41.89 Other specified sepsis; J96.21 Acute and chronic respiratory failure with hypoxia; E43 Unspecified severe protein-calorie malnutrition; G93.40 Encephalopathy, unspecified; K72.00 Acute and subacute hepatic failure without coma; K29.71 Gastritis, unspecified, with bleeding; N18.6 End stage renal disease; I13.2 Hypertensive heart and chronic kidney disease with heart failure and with stage 5 chronic kidney disease, or end stage renal disease; I50.9 Heart failure, unspecified; E78.5 Hyperlipidemia, unspecified; F32.9 Major depressive disorder, single episode, unspecified; F41.9 Anxiety disorder, unspecified; E03.9 Hypothyroidism, unspecified; K44.9 Diaphragmatic hernia without obstruction or gangrene; R13.10 Dysphagia, unspecified; E87.6 Hypokalemia; I25.10 Atherosclerotic heart disease of native coronary artery without angina pectoris; D63.1 Anemia in chronic kidney disease; E87.70 Fluid overload, unspecified; Y83.8 Other surgical procedures as the cause of abnormal reaction of the patient, or of later complication, without mention of misadventure at the time of the procedure; Y92.89 Other specified places as the place of occurrence of the external cause; Z93.0 Tracheostomy status; Z88.8 Allergy status to other drugs, medicaments and biological substances; Z93.1 Gastrostomy status; Z86.73 Personal history of transient ischemic attack (TIA), and cerebral infarction without residual deficits; Z68.22 Body mass index [BMI] 22.0-22.9, adult; Z99.2 Dependence on renal dialysis
CPT/HCPCS: 36415-UA; 36600-90; 71010-TC; 80048-TC; 80053-TC; 80202-TC; 82140-TC; 82248-TC; 82270-TC; 82803-TC; 82948-90; 83605; 83735-TC; 84443-TC; 85007-TC; 85027-TC; 85610-TC; 86850-TC; 86900-TC; 86901-TC; 86922-TC; 87070; 87070-90; 90779; 93005; 94640; 94664; 94760; J0885; J1644; J1956; J2001; J2060; J2185; J2543; J2704; J3370; J3480; J7030; J7040; J7613; P9016; Z7610